=== PATIENT | male | born 1990 | race Caucasian/White ===

== ENCOUNTER 2024-03-18 17:15 | Inpatient (IN) | payer OTHER, SELFPAY ==
[2024-03-18 12:05] VITALS: BP 149/99
[2024-03-18 12:52] LABS: Glucose - Point of Care 102 mg/dl (70-99)
[2024-03-18] MEDS: NSS 1000 IV (12:54)
[2024-03-18] MEDS: ZOFRAN 4 MG IV (12:54)
[2024-03-18] MEDS: PROTONIX IV 40 MG IV (12:54)
--- NOTE | 2024-03-18 13:08 | ED.GENMED ---
History of Present Illness
General
Chief Complaint: Abdominal Pain
Source: patient and records
Exam Limitations: none
Time Seen by Provider: 03/18/24 12:42
Nursing documentation reviewed up to this point in time: agreed with
Travel History
Have you had any contact with someone who has COVID-19?: No
Do you have any symptoms of coronavirus? Fever > 100 degrees, chills, cough, shortness of breath, sore throat, loss of taste or smell, muscle aches, or headache?: No
History of Present Illness
History of Present Illness:
33-year-old male with a past medical history of hyperlipidemia, CAD, chronic alcohol abuse who presents to the emergency room for evaluation of abdominal pain. Patient reports onset of symptoms this morning and have been constant since that time.
He reports epigastric pain which is nonradiating. Associate with nausea but no vomiting. He reports he has a history of chronic pancreatitis' and feels like it is flaring up.' He denies any alcohol use today or yesterday to me. He denies any
fevers or chills. He denies any diarrhea or constipation. Denies any other complaints.
Past History
Past History
ED Past Medical History: CAD and Psychiatric
ED Past Surgical History: None
Social History
Tobacco: Smoker
Alcohol: Occasional
Drug: Cocaine, Narcotics and Other
Personal: Single
Living: homeless
Employment: Not employed
Family History
Family History: Early CAD
Review of Systems
Review of Systems
All Other Systems: ROS reviewed and negative except as documented in HPI and ROS
Constitutional: Denies fever or chills
Respiratory: Denies trouble breathing
Cardiac: Denies chest pain
ABD/GI: Reports abdominal pain and nausea; Denies vomiting, diarrhea or constipated
: Denies flank pain
Musculoskeletal: Denies neck pain or back pain
Neurological: Denies dizzy or headache
Phy Exam
Physical Exam
Physical Exam:
General: Patient is sleeping and lethargic but arousable
Head: Normocephalic, atraumatic
Eyes: Conjunctiva normal, sclera anicteric, pupils equal round reactive to light bilaterally
Throat: Airway intact, handling secretions
Neck: Trachea midline, supple without meningismus
Lungs: Clear to auscultation bilaterally, no wheezing, rales, rhonchi
Heart: Regular rate and rhythm, no murmurs, gallops, or rubs
Abd: Soft, non distended, markedly tender in the epigastric region
Neuro: No gross motor or sensory deficits, somewhat lethargic
Extremities: Atraumatic, warm and well-perfused
Scores
Heart Failure Risk
Heart Failure Risk Score: Not Applicable
Heart Score for Chest Pain Patients
STEMI patient?: Not applicable
Withdrawal Assessment of Alcohol
Withdrawal Assessment Completed?: Not applicable
Course
Orders/Labs/Results
Orders:
Orders
03/18/24 12:43
CT Abd/pelvis W Iv Cont Urgent
Comment:
Reason For Exam: upper abd pain, N/V, h/o chronic pancreatitis
0.9% Sodium Chloride 1000 ml [Nss] 1,000 ml IV BOLUS
HYDROmorphone [Dilaudid] 1 mg IV NOW STA
Ondansetron Injectable [Zofran] 4 mg IV NOW STA
03/18/24 12:44
Electrocardiogram (*1) Urgent
Reason for Study: QTc Monitoring
EKG- Treatment ONCE
03/18/24 12:45
Pantoprazole [Protonix IV] 40 mg IV NOW STA
03/18/24 12:46
Bedside Glucose- Treatment ONCE
Alcohol Urgent
Complete Blood Count/With Diff Urgent
Comprehensive Metabolic Panel Urgent
LDH Urgent
Comment: ADD ON
Lipase Urgent
03/18/24 14:12
Add On- LAB Urgent
Tests Added?: LDH
03/18/24 14:17
HYDROmorphone [Dilaudid] 1 mg IV NOW PRN
HYDROmorphone [Dilaudid] 1 mg IV NOW STA
Abnormal Lab Results
03/18/24 03/18/24
12:46 12:51
RBC 3.77 L 10^6/uL
(4.70-6.10)
Hgb 11.5 L g/dL
(13.0-18.0)
Hct 34.6 L %
(39.0-52.0)
Absolute Neuts (auto) 8.3 H 10^3/uL
(1.4-6.5)
Absolute Lymphs (auto) 0.6 L 10^3/uL
(1.2-3.4)
Neutrophils % 87.8 H %
(42.2-75.2)
Lymphocytes % 5.8 L %
(20.5-51.1)
Creatinine 0.6 L mg/dL
(0.7-1.3)
Glucose 109 H mg/dl
(70-99)
AST 66 H U/L
(17-59)
Alkaline Phosphatase 137 H U/L
(38-126)
Lactate Dehydrogenase 281 H U/L
(120-246)
Lipase 1882 H* U/L
(23-300)
POC Glucose 102 H mg/dl
(70-99)
03/18/24 12:46
03/18/24 12:46
Vital Signs
Initial and Last Documented VS:
Initial Vital Signs
Pulse Resp BP Pulse Ox
77 18 149/99 100
03/18/24 12:05 03/18/24 12:05 03/18/24 12:05 03/18/24 12:05
Last Documented Vital Signs
Pulse Resp BP Pulse Ox
62 16 134/90 100
03/18/24 14:11 03/18/24 14:11 03/18/24 14:11 03/18/24 14:11
MDM/Problems Addressed
Differential Diagnosis Includes:
Alcohol intoxication, alcoholic gastritis, acute pancreatitis, cholelithiasis/cholecystitis
MDM/Problems Addressed:
33-year-old male with history as above presents for evaluation of upper abdominal pain that started this morning he says associated with nausea. He says similar to prior episodes of pancreatitis. His vital signs are significant for mild
hypertension but otherwise unremarkable. Physical exam as above. His Accu-Chek was normal. Plan to place an IV check labs including a CBC and a CMP, lipase. Will check an alcohol level. Check CT of the abdomen pelvis. EKG for QTc monitoring.
Zofran for nausea. Will treat with IV Protonix as well. Will provide some fluids. Monitor closely reassess after the above.
Labs reviewed: CBC shows mild anemia; CMP shows slight elevation of AST. Lipase elevated at 1882 consistent with acute on chronic pancreatitis. Patient having continued pain we will provide additional Dilaudid. Will admit for continued management
of acute pancreatitis. Case discussed with hospitalist for admission.
Chronic conditions affecting care:
Alcohol abuse
Acute Exacerbation and/or Progression of Chronic Illness:
Acutely hypertensive
Acute Exacerbation and/or Progression of Chronic Illness: HTN
*Pulse Oximetry
Patient hypoxic: no
*EKG
Interpreted by ED Provider?: Yes
Heart Rate: 50
Rate: bradycardiac
Rhythm: sinus
[place]: normal axis
Interval: normal interval
QRS Pattern: normal QRS
Ischemia: no ischemia
*Critical Care Note
Total Time (30-74mins, 75-104mins- exclusive of procedures): Not Applicable
Data Reviewed
Review of Other/Old Records Reveals: Labs and Records
Source: patient
ED Attending Note
-
Portions of this chart may have been created with voice recognition software.� Occasional wrong word or��sound alike� substitutions may have occurred due to the inherent limitations of voice recognition software.
Discharge Plan
Departure
Patient Disposition: Admit
Date of Disposition: 03/18/24
Time of Disposition: 16:07
Admit to doctor: Susy
Presentation/result/management discussed w/ accepting MD/DO: Hospitalist
Discharge Problem:
Acute pancreatitis
Prescriptions:
No Action
atorvastatin [Lipitor] 20 MG tablet
40 mg PO HS
aspirin 81 MG tablet,delayed release (DR/EC)
81 mg PO DAILY
albuterol sulfate [Ventolin HFA] 90 MCG/PUFF HFA aerosol inhaler
2 puff inhalation R Q6HPRN PRN (Reason: sob)
prasugrel [Effient] 10 MG tablet
10 mg PO DAILY
dextroamphetamine-amphetamine [Adderall] 10 mg Tablet
10 mg PO NOON
dextroamphetamine-amphetamine [Adderall] 20 mg Tablet
20 mg PO DAILY
diazepam 10 mg Tablet
10 mg PO BID
buprenorphine-naloxone 8-2 mg film
1 film buccal DAILY
Patient Comments:
patient orange picker on 02/19 #15
Referrals:
Dannie Welch MD [Family Provider] -
Interventions
Interventions:
*Risk Screen - Suicide Last Done: 03/18/24 13:05
*General Assessment Last Done: 03/18/24 12:05
*Neglect/Abuse Screening Last Done: 03/18/24 13:05
*ED COVID-19 Vaccine History Last Done: 03/18/24 12:05
MU-Qhcznu-Ooylsrfcji Assessment Last Done: 03/18/24 13:05
Discharge Date and Time
Print Language: TURKISH
[2024-03-18 13:09] LABS: % Basophils 0.2 % (0-2); % Eosinophils 0.8 % (0-6); % Immature Granulocytes 0.3 % (0-0.5); % Lymphocytes 5.8 % (20.5-51.1); % Monocytes 5.1 % (1.7-9.3); % Neutrophils 87.8 % (42.2-75.2); Absolute Eosinophils 0.1 10^3/uL (0-0.7); Absolute Lymphocytes 0.6 10^3/uL (1.2-3.4); Absolute Monocytes 0.5 10^3/uL (0.1-0.6); Absolute Neutrophils 8.3 10^3/uL (1.4-6.5); Hematocrit 34.6 % (39.0-52.0); Hemoglobin 11.5 g/dL (13.0-18.0); Mean Corp Hgb Conc. 33.2 g/dL (33.0-37.0); Mean Corpuscular Hgb 30.5 pg (27.0-31.0); Mean Corpuscular Volume 91.8 fL (80.0-94.0); Mean Platelet Volume 8.4 fL (7.4-10.4); Nucleated Red Blood Cells % 0 % (-); Platelet Count 175 10^3/uL (130-400); Red Blood Cell Count 3.77 10^6/uL (4.70-6.10); Red Cell Dist. Width 14.4 % (11.5-14.5); White Blood Cell Count 9.5 10^3/uL (4.8-10.8)
[2024-03-18 13:50] LABS: ALT (SGPT) 29 U/L (0-50); AST (SGOT) 66 U/L (17-59); Albumin 4.2 g/dl (3.5-5.0); Alkaline Phosphatase 137 U/L (38-126); Blood Urea Nitrogen 17 mg/dl (9-20); Calcium 8.8 mg/dl (8.4-10.2); Carbon Dioxide 24 mmol/L (22-30); Chloride 103 mmol/L (98-107); Glucose 109 mg/dl (70-99); Lipase 1882 U/L (23-300); Potassium 3.7 mmol/L (3.5-5.1); Sodium 137 mmol/L (135-145); Total Bilirubin 1.2 mg/dl (0.2-1.3); Total Protein 7.2 g/dl (6.3-8.2); eGFR > 60.00
[2024-03-18 14:06] LABS: Alcohol None Detected
[2024-03-18 14:11] VITALS: BP 134/90
[2024-03-18] MEDS: DILAUDID 1 MG IV ×3 (14:26→17:32)
[2024-03-18 14:31] LABS: LDH 281 U/L (120-246)
--- NOTE | 2024-03-18 16:03 | EDRN ---
Pt states he couldn't tolerate CT because he's in too much pain to lay on the table. Pt states he was getting Dilaudid 4mg every few minutes via [employer] APPRAISER pump when he was admitted at [facility]. Pt laying in bed, talking on the phone, no apparent
distress noted, breathing unlabored. Pt requesting, more pain meds before re-attempting the CT scan. aware.
[2024-03-18 16:32] VITALS: BP 131/87
--- NOTE | 2024-03-18 16:35 | HPS.HSE ---
Family Physician
-
Family Physician: Dannie Welch
Chief Complaint
-
abdominal pain
History of Present Illness
33-year-old male past medical history of CAD, hyperlipidemia, chronic pancreatitis, alcohol use disorder, former opiate use, presenting for abdominal pain since this morning and constant since then. Pain is located epigastric region and goes all
the way up to his neck and back. He has shortness of breath associate with the pain. He has nausea but no vomiting. Denies diarrhea or constipation. Denies fevers or chills.
He last drank a cup of 5% alcoholic tea yesterday night. He drinks alcohol every other day sometimes excessively multiple drinks per day.
He was last hospitalized at [facility] August for acute pancreatitis. He was seen by pain management there during that hospitalization and required HOME HEALTH CLINICIAN pump.
He has not used nonprescribed opiates in years. Uses marijuana sometimes. Denies any other drugs
Medical History
Past Medical History
Past Medical History: Reports Other (CAD, hyperlipidemia, chronic pancreatitis, alcohol use disorder, former opiate use,)
Past Surgical History: Reports Orthopedic
Social History
Tobacco: Non-smoker
Alcohol: Daily
Drug: Marijuana
Family History
Family History: Not pertinent
Allergies / Home Medications
Allergies reflects when Allergies were last updated in [employer].
Home Medications with original date entered in [employer]
Allergy/Medication List:
Allergies
Allergy/AdvReac Type Severity Reaction Status Date / Time
No Known Allergies Allergy Verified 03/18/24 12:07
Home Medications
albuterol sulfate 90 mcg/actuation aerosol inhaler (Ventolin HFA) 2 puff inhalation R Q6HPRN PRN sob 01/10/19
aspirin 81 mg tablet,delayed release 81 mg PO DAILY 01/10/19
atorvastatin 20 mg tablet (Lipitor) 40 mg PO HS 01/10/19
prasugrel 10 mg tablet (Effient) 10 mg PO DAILY 01/10/19
buprenorphine 8 mg-naloxone 2 mg sublingual film 1 film buccal DAILY 03/18/24
dextroamphetamine-amphetamine 10 mg tablet (Adderall) 10 mg PO NOON 03/18/24
dextroamphetamine-amphetamine 20 mg tablet (Adderall) 20 mg PO DAILY 03/18/24
diazepam 10 mg tablet 10 mg PO BID 03/18/24
Review of Systems
-
History Source: Patient
A 12 point ROS was completed and negative except as noted: Yes
Constitutional: Reports No Symptoms
EENT: Reports No Symptoms
Respiratory: Reports No Symptoms
Cardiac: Reports No Symptoms
Abdomen/GI: Reports See HPI
: Reports No Symptoms
Musculoskeletal: Reports No Symptoms
Skin: Reports No Symptoms
Neurological: Reports No Symptoms
Endocrine: Reports No Symptoms
Hematologic/Lymphatic: Reports No Symptoms
Psych: Reports No Symptoms
Physical Exam
Vital Signs
Vital Signs
Pulse Resp BP Pulse Ox
65 16 131/87 99
03/18/24 16:32 03/18/24 16:32 03/18/24 16:32 03/18/24 16:32
Physical Exam
General: Well Developed, Well Nourished and No Apparent Distress
HEENT: NormoCephalic, Moist mucous membranes and Atraumatic
Respiratory: Clear
Cardiac: S1/S2 and Regular Rhythm; No Murmur or Rub
GI: Soft, Non Distended, Normal Bowel Sounds and Tender (epigastric ); No Organomegaly
Rectal: Deferred by Provider
Musculoskeletal: No Clubbing, No Cyanosis and No Edema
Skin: No Rash
Neuro: Nonfocal/grossly intact
Laboratory Results
-
03/18/24 12:46
03/18/24 12:46
Laboratory Results
Total Bilirubin 1.2 mg/dl (0.2-1.3) 03/18/24 12:46
AST 66 U/L (17-59) H 03/18/24 12:46
ALT 29 U/L (0-50) 03/18/24 12:46
Alkaline Phosphatase 137 U/L (38-126) H 03/18/24 12:46
Lipase 1882 U/L (23-300) H* 03/18/24 12:46
Data Reviewed
-
Lab Data: Labs Reviewed by me
Old Records: Reviewed
Impression/Plan
-
IMPRESSION:
PLAN:
# Acute on chronic alcoholic pancreatitis
-Lipase 1800
-CT abdomen pelvis pending
-Check lipid panel
-N.p.o.
-LR at 200/hr
-Dilaudid for pain although pain control will be difficult, 2 mg IV q4 for now, may require HOME HEALTH CLINICIAN
-hold Suboxone which is being given for pain and prior history of opiate use
Alcohol use disorder
-Continue diazepam
-Alcohol withdrawal protocol
-Thiamine and folate
Coronary artery disease status post stent
-Continue aspirin, prasugrel, statin
Hyperlipidemia
-Continue statin
ADHD
-Continue Adderall
Anxiety/depression
History of former opiate use disorder
Marijuana user
Full code
DVT prophylaxis�heparin
N.p.o.
[2024-03-18 18:28] VITALS: BP 136/80
[2024-03-18] MEDS: LR 1000 IV (18:40)
[2024-03-18 19:32] LABS: HDL Cholesterol 82 mg/dl; LDL Cholesterol, Calculated 27 mg/dl; Total Cholesterol 126 mg/dl (50-199); Triglyceride 89 mg/dl (10-149); Very Low Density Lipoprotein 17 mg/dl (0-30)
[2024-03-18] MEDS: HEPARIN 5000 UNITS SC (20:17)
[2024-03-18] MEDS: THIAMINE INJECTION 200 MG IV (20:17)
[2024-03-18] MEDS: LIPITOR 40 MG PO (20:18)
[2024-03-18] MEDS: VALIUM 10 MG PO (20:18)
[2024-03-18] MEDS: DILAUDID 2 MG IV (20:21)
[2024-03-18 23:03] VITALS: BP 157/86
[2024-03-19] MEDS: DILAUDID 2 MG IV ×3 (00:21→11:00)
[2024-03-19] MEDS: LR 1000 IV ×5 (00:26→19:40)
[2024-03-19] MEDS: DILAUDID 1 MG IV (03:56)
--- NOTE | 2024-03-19 05:41 | PTCARENOTE ---
Pt repots that Q$ hour PRN pain meds will not be enough, wants a web production manager pump like he had at [place]. Pt then requested pain meds be scheduled Q3 hours. Pt threatened to leave ama and contact 'corporate'. [facility] aware. Pt instructed to call when in pain
and we can ask about stat dose between PRN for breakthrough when appropriate. Also advised pt to speak with attending about changes with PRN regimen in the am.
[2024-03-19 07:30] VITALS: BP 132/80
[2024-03-19 07:58] LABS: % Basophils 0.3 % (0-2); % Eosinophils 2.6 % (0-6); % Immature Granulocytes 0.3 % (0-0.5); % Lymphocytes 12.2 % (20.5-51.1); % Monocytes 5.4 % (1.7-9.3); % Neutrophils 79.2 % (42.2-75.2); Absolute Eosinophils 0.2 10^3/uL (0-0.7); Absolute Monocytes 0.4 10^3/uL (0.1-0.6); Absolute Neutrophils 6.3 10^3/uL (1.4-6.5); Hematocrit 30.9 % (39.0-52.0); Hemoglobin 10.8 g/dL (13.0-18.0); Mean Corpuscular Hgb 30.9 pg (27.0-31.0); Mean Corpuscular Volume 88.5 fL (80.0-94.0); Nucleated Red Blood Cells % 0 % (-); Platelet Count 163 10^3/uL (130-400); Red Blood Cell Count 3.49 10^6/uL (4.70-6.10); Red Cell Dist. Width 14.4 % (11.5-14.5)
--- NOTE | 2024-03-19 08:37 | W.PN.HOSP.TC ---
Today's Communication/Plan
-
Change IV medications to Dilaudid DOOR TRIMMER
Clear liquid diet, trend lipase
Assessment / Plan
Assessment / Plan
HPI: 33-year-old male past medical history of CAD, hyperlipidemia, chronic pancreatitis, alcohol use disorder, former opiate use, presenting for abdominal pain since this morning and constant since then. Pain is located epigastric region and goes
all the way up to his neck and back. He has shortness of breath associate with the pain. He has nausea but no vomiting. Denies diarrhea or constipation. Denies fevers or chills. He last drank a cup of 5% alcoholic tea yesterday night. He drinks
alcohol every other day sometimes excessively multiple drinks per day.
He was last hospitalized at [facility] August for acute pancreatitis. He was seen by pain management there during that hospitalization and required DOOR TRIMMER pump.
# Acute on chronic alcoholic pancreatitis
CT findings compatible with acute pancreatitis with some pancreatic/peripancreatic edematous changes and some moderate volume widespread peripancreatic fluid extending into the left anterior pararenal spaces and paracolic gutters bilaterally.
Hold Suboxone which is being given for pain and prior history of opiate use
Continue IV fluids, Dilaudid DOOR TRIMMER pump, trial of clears when ready
Alcohol use disorder
-Continue diazepam
-Alcohol withdrawal protocol
-Thiamine and folate
Coronary artery disease status post stent
-Continue aspirin, prasugrel, statin
Hyperlipidemia
-Continue statin
ADHD
-Continue Adderall
Anxiety/depression
History of former opiate use disorder
-On buprenorphine outpatient (held here)
Marijuana user
DVT prophylaxis�SCDs
Total time spent to see the patient on the floor, examine the patient, review data and lab results, discuss treatment plan with patient, nursing staff around 51 minutes.
Physical Exam
General: No acute distress
HEENT: Normocephalic, Atraumatic, EOMI, MMM
Respiratory: Clear to Auscultation bilaterally
Cardiac: Normal S1/S2, Regular Rate and Rhythm
GI: Soft, tender to palpation, Nondistended, Normal Bowel Sounds
Extremities: No Clubbing, Cyanosis, or Edema
Neuro: Nonfocal/Grossly Intact
Psych: Calm, Cooperative
Derm: No Visible lesions
Anticipated Discharge: > 48 hours
Subjective/Interval History
-
Date of Service: March 19, 2024
Patient complains of severe abdominal pain. No fever, no vomiting. He is asking for DOOR TRIMMER. States he required 1 at [place].
Objective Data
-
Labs:
Laboratory Results
03/19/24
07:32
WBC 8.0
Hgb 10.8 L
Hct 30.9 L
Plt Count 163
Sodium Pending
Potassium Pending
Chloride Pending
Carbon Dioxide Pending
BUN Pending
Creatinine Pending
Glucose Pending
Calcium Pending
Total Bilirubin Pending
AST Pending
ALT Pending
Alkaline Phosphatase Pending
Vital Signs:
Vital Signs
Temp Pulse Resp BP Pulse Ox
98.2 F 55 16 132/80 98
03/19/24 07:30 03/19/24 07:30 03/19/24 07:30 03/19/24 07:30 03/19/24 07:30
I&O
03/18/24 03/19/24 03/20/24
06:59 06:59 06:59
Intake Total 2400 / 2400
Balance 2400 / 2400
[2024-03-19] MEDS: FOLVITE 1 MG PO (08:56)
[2024-03-19] MEDS: ADDERALL PO ×2 (08:56→14:50)
[2024-03-19] MEDS: ASPIR LOW (ENTERIC COATED) 81 MG PO (08:57)
[2024-03-19] MEDS: THIAMINE INJECTION 200 MG IV ×2 (08:57→19:42)
[2024-03-19] MEDS: VALIUM 10 MG PO ×2 (08:57→19:42)
[2024-03-19] MEDS: HEPARIN 5000 UNITS SC (08:57)
[2024-03-19 09:55] LABS: ALT (SGPT) 21 U/L (0-50); AST (SGOT) 46 U/L (17-59); Albumin 3.1 g/dl (3.5-5.0); Alkaline Phosphatase 126 U/L (38-126); Blood Urea Nitrogen 12 mg/dl (9-20); Carbon Dioxide 23 mmol/L (22-30); Chloride 104 mmol/L (98-107); Estimated Creatinine Clearance > 125 ml/min; Glucose 81 mg/dl (70-99); Potassium 3.5 mmol/L (3.5-5.1); Sodium 134 mmol/L (135-145); Total Bilirubin 0.9 mg/dl (0.2-1.3); Total Protein 5.7 g/dl (6.3-8.2); eGFR > 60.00
[2024-03-19] MEDS: EFFIENT 10 MG PO (10:59)
[2024-03-19] MEDS: TORADOL 30 MG IV ×3 (10:59→22:00)
[2024-03-19] MEDS: DILAUDID PCA 30 IV (14:05)
[2024-03-19 15:20] LABS: Lipase 1335 U/L (23-300)
[2024-03-19 15:46] VITALS: BP 126/75
--- NOTE | 2024-03-19 18:14 | PTCARENOTE ---
Pt not getting pain relief from 2mg dilaudid q4prn. Dilaudid HAM PUMPER started w/ q6 30mg IV toradol. Pt states pain is not completely relieved w/ this but tolerable. Pt started on clear diet and tolerating well for lunch and dinner.
[2024-03-19] MEDS: LIPITOR 40 MG PO (19:42)
[2024-03-19 23:30] VITALS: BP 119/68
[2024-03-20] MEDS: LR 1000 IV ×5 (00:22→21:03)
--- NOTE | 2024-03-20 04:05 | PTCARENOTE ---
Assumed care of patient from previous RN. Patient appears to be comfortable during walking rounds. Settings checked on HOT STRIP FINISHER pump with dayshift RN, timer present on patients lap on his cell phone to time when next bolus dose can be delievered.
Patient has called for this RN multiple times throughout shift to state he is unable to get his next bolus dose delivered as his timer is stating it is time that he can recieve next dose. Multiple calls to this RN made while this RN was in with
other patients, patient again appears to be comfortable with timer on lap.
This RN set own timer to observe bolus dose availability, at this time patient was able to receive bolus dose and he restarted his timer to be prepared for next dose to be given. Patient again appeared to be comfortable during this whole time.
Another RN present at bedside to assess patient and pump -- verified with this second RN that pump settings are correct, and that pump is working appropriately. Second HOT STRIP FINISHER pump obtained and changed out in the presence of second RN to appease
patient's anxieties about HOT STRIP FINISHER pump not working appropriately. Patient stating at this time 'I feel like this is malpractice. I have already spoken with my doctor through [place] to question if this is malpractice since I am sitting in pain and not
getting any bolus doses.' Patient is also stating he feels that we are lying about the HOT STRIP FINISHER pumps not working since he is unable to deliver bolus doses based on his timing. During further investigation of pump and settings -- it was noted by this RN
and second RN that patient has been receiving his total hourly limit, which includes his continuous rate and bolus amounts. Patient unable to deliver additional HOT STRIP FINISHER dose during these times, based on his timer countdown, for reaching his max hourly
limit. Patient does admit that he is feeling very anxious surrounding the timing of his bolus doses and that he is experiencing worse pain now than earlier in this shift because he does not feel he is getting the correct amount of medication.
Notified LEANDRO Pickett and requested dose of Ativan to assist patient is calming down and attempting to get some sleep. Awaiting further instruction, call womack within reach, will monitor.
--- NOTE | 2024-03-20 04:37 | W.PN.UPDATE ---
Update Note
Progress Note Update
RN stated patient anxious and obsessed with his medication pump and noted patient staying up for his next bolus of Dilaudid. patient appears comfortable and does not meet the criteria of MSAS. Requesting Ativan to help calm his anxiety. Will give
Ativan 0.5mg IV x 1. hx of ADHD, haven't been taking Adderall. May need psych Consult.
[2024-03-20] MEDS: TORADOL 30 MG IV ×4 (04:54→22:02)
[2024-03-20] MEDS: NSS (PRESERVATIVE FREE) 0.25 ML IV (04:55)
[2024-03-20] MEDS: ATIVAN 0.5 MG IV (04:55)
[2024-03-20 06:13] LABS: Hematocrit 26.4 % (39.0-52.0); Hemoglobin 9.1 g/dL (13.0-18.0); Mean Corp Hgb Conc. 34.5 g/dL (33.0-37.0); Mean Corpuscular Hgb 30.7 pg (27.0-31.0); Mean Corpuscular Volume 89.2 fL (80.0-94.0); Mean Platelet Volume 9.1 fL (7.4-10.4); Platelet Count 140 10^3/uL (130-400); Red Blood Cell Count 2.96 10^6/uL (4.70-6.10); Red Cell Dist. Width 13.7 % (11.5-14.5); White Blood Cell Count 4.8 10^3/uL (4.8-10.8)
[2024-03-20 06:31] LABS: Blood Urea Nitrogen 8 mg/dl (9-20); Calcium 7.7 mg/dl (8.4-10.2); Carbon Dioxide 26 mmol/L (22-30); Chloride 104 mmol/L (98-107); Estimated Creatinine Clearance > 125 ml/min; Glucose 87 mg/dl (70-99); Lipase 687 U/L (23-300); Magnesium 1.5 mg/dl (1.6-2.3); Phosphorus 3.6 mg/dl (2.5-4.5); Potassium 3.5 mmol/L (3.5-5.1); Sodium 135 mmol/L (135-145); eGFR > 60.00
[2024-03-20 07:30] VITALS: BP 117/81
--- NOTE | 2024-03-20 07:37 | W.PN.HOSP.TC ---
Addendum entered and electronically signed by Suleiman Roldan MD 03/20/24 13:44:
Discussed with patient's pain management doctor Dr. Mell Webb 03/20, informing her that his max dose of IV Dilaudid is 1.1 mg/h, giving him 3.3 mg over 3 hours.
Also informed her that his Dilaudid SENIOR MEDIA DIRECTOR pump was changed last night, and nursing states that it is working fine. Dr. Webb states that this is a good dose for him.
She also states that our hospitalist can get in touch with her at [phone] when it is time to transition him back to Suboxone.
Addendum entered and electronically signed by Suleiman Roldan MD 03/20/24 12:04:
#Hypomagnesemia
Give magnesium sulfate 2 g IV x 1, recheck a.m. mag
#Hypocalcemia
Start calcium and vitamin D
Recheck a.m. Ca
Original Note:
Today's Communication/Plan
-
See bold
Assessment / Plan
Assessment / Plan
HPI: 33-year-old male past medical history of CAD, hyperlipidemia, chronic pancreatitis, alcohol use disorder, former opiate use, presenting for abdominal pain since this morning and constant since then. Pain is located epigastric region and goes
all the way up to his neck and back. He has shortness of breath associate with the pain. He has nausea but no vomiting. Denies diarrhea or constipation. Denies fevers or chills. He last drank a cup of 5% alcoholic tea yesterday night. He drinks
alcohol every other day sometimes excessively multiple drinks per day.
He was last hospitalized at [facility] August for acute pancreatitis. He was seen by pain management there during that hospitalization and required SENIOR MEDIA DIRECTOR pump.
# Acute on chronic alcoholic pancreatitis
CT findings compatible with acute pancreatitis with some pancreatic/peripancreatic edematous changes and some moderate volume widespread peripancreatic fluid extending into the left anterior pararenal spaces and paracolic gutters bilaterally.
Patient counseled to permanently abstain from drinking alcohol
Hold Suboxone which is being given for pain and prior history of opiate use
Continue IV fluids, Dilaudid SENIOR MEDIA DIRECTOR pump, clear liquid diet, trend lipase
Called patient's pain management doctor, Dr. Mell Webb 03/20 and left message
Alcohol use disorder
-Continue diazepam
-Alcohol withdrawal protocol
-Thiamine and folate
Coronary artery disease status post stent
-Continue aspirin, prasugrel, statin
Hyperlipidemia
-Continue statin
ADHD
-Continue Adderall
Anxiety/depression
History of former opiate use disorder
-On buprenorphine outpatient (held here)
Marijuana user
DVT prophylaxis�SCDs
Total time spent to see the patient on the floor, examine the patient, review data and lab results, discuss treatment plan with patient, nursing staff around 52 minutes.
Physical Exam
General: No acute distress
HEENT: Normocephalic, Atraumatic, EOMI, MMM
Respiratory: Clear to Auscultation bilaterally
Cardiac: Normal S1/S2, Regular Rate and Rhythm
GI: Soft, tender to palpation, Nondistended, Normal Bowel Sounds
Extremities: No Clubbing, Cyanosis, or Edema
Neuro: Nonfocal/Grossly Intact
Psych: Calm, Cooperative
Derm: No Visible lesions
Anticipated Discharge: 24 - 48 hours
Subjective/Interval History
-
Date of Service: March 20, 2024
Patient's pain was controlled with the Dilaudid SENIOR MEDIA DIRECTOR pump during the day yesterday. He had his clear liquid tray, reports eating a lot, and had a terrible night with worsening abdominal pain. He thought his pump was not working. The pump was
changed last night. His pain is better this morning. He tolerated his diet without pain this morning. No fever, no vomiting.
Objective Data
-
Labs:
Laboratory Results
03/20/24
05:32
WBC 4.8
Hgb 9.1 L
Hct 26.4 L
Plt Count 140
Sodium 135
Potassium 3.5
Chloride 104
Carbon Dioxide 26
BUN 8 L
Creatinine 0.5 L
Glucose 87
Calcium 7.7 L
Vital Signs:
Vital Signs
Temp Pulse Resp BP Pulse Ox
98.2 F 58 18 119/68 98
03/19/24 23:30 03/19/24 23:30 03/20/24 04:00 03/19/24 23:30 03/20/24 04:00
I&O
03/19/24 03/20/24 03/21/24
06:59 06:59 06:59
Intake Total 2400 / 2400 3540 / 3540
Balance 2400 / 2400 3540 / 3540
[2024-03-20] MEDS: MAGNESIUM SULFATE 50 IV (08:26)
[2024-03-20] MEDS: FOLVITE 1 MG PO (08:27)
[2024-03-20] MEDS: VALIUM 10 MG PO ×2 (08:27→20:35)
[2024-03-20] MEDS: THIAMINE INJECTION 200 MG IV ×2 (08:27→20:35)
[2024-03-20] MEDS: OSCAL 500 + D 500 MG PO ×3 (08:27→22:03)
[2024-03-20] MEDS: ASPIR LOW (ENTERIC COATED) 81 MG PO (08:27)
[2024-03-20] MEDS: ADDERALL PO (08:29)
[2024-03-20] MEDS: EFFIENT 10 MG PO (09:02)
[2024-03-20] MEDS: ADDERALL 10 MG PO (11:44)
[2024-03-20 15:07] VITALS: BP 130/80
--- NOTE | 2024-03-20 15:26 | CM ---
Met with patient at bedside; initial assessment completed
Pharmacy verified: [facility], [place]
Patient lives alone in a one floor rental home; 1 step to enter; bath has tub/shower
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
[facility] Alcohol Rehab stay in 2019
Transportation: friend will transport home
Plan: discharge to home when medically stable; no needs
[2024-03-20] MEDS: DILAUDID PCA 30 IV (20:10)
[2024-03-20] MEDS: LIPITOR 40 MG PO (22:03)
[2024-03-20 22:28] VITALS: BP 143/90
[2024-03-21] MEDS: LR 1000 IV ×5 (02:07→23:15)
[2024-03-21] MEDS: TORADOL 30 MG IV ×4 (03:50→23:08)
[2024-03-21 07:00] VITALS: BP 127/89
[2024-03-21 07:59] LABS: Hemoglobin 10.6 g/dL (13.0-18.0); Mean Corp Hgb Conc. 35.3 g/dL (33.0-37.0); Mean Corpuscular Hgb 31.2 pg (27.0-31.0); Mean Corpuscular Volume 88.2 fL (80.0-94.0); Mean Platelet Volume 8.8 fL (7.4-10.4); Platelet Count 185 10^3/uL (130-400); Red Cell Dist. Width 14.3 % (11.5-14.5); White Blood Cell Count 4.9 10^3/uL (4.8-10.8)
[2024-03-21 08:06] LABS: Potassium 3.5 mmol/L (3.5-5.1)
[2024-03-21 08:07] LABS: Blood Urea Nitrogen 4 mg/dl (9-20); Calcium 8.3 mg/dl (8.4-10.2); Carbon Dioxide 29 mmol/L (22-30); Chloride 104 mmol/L (98-107); Estimated Creatinine Clearance > 125 ml/min; Glucose 87 mg/dl (70-99); Lipase 510 U/L (23-300); Magnesium 1.6 mg/dl (1.6-2.3); Phosphorus 4.7 mg/dl (2.5-4.5); Sodium 139 mmol/L (135-145); eGFR > 60.00
[2024-03-21] MEDS: ASPIR LOW (ENTERIC COATED) 81 MG PO (08:44)
[2024-03-21] MEDS: EFFIENT 10 MG PO (08:45)
[2024-03-21] MEDS: FOLVITE 1 MG PO (08:45)
[2024-03-21] MEDS: OSCAL 500 + D 500 MG PO ×3 (08:46→23:07)
[2024-03-21] MEDS: ADDERALL 20 MG PO (08:46)
[2024-03-21] MEDS: THIAMINE INJECTION 200 MG IV (08:46)
[2024-03-21] MEDS: VALIUM 10 MG PO ×2 (08:46→19:40)
--- NOTE | 2024-03-21 09:06 | PTCARENOTE ---
Patient was sound asleep during nurse shift change at 0730. RN let patient keep sleeping. At 0900, RN went in to assess patient and administer morning meds, patient begins to state that his pain is uncontrolled and getting worse than yesterday. RN
educated patient on Dilaudid SECURITIES LENDING TRADER plan and IV toradol Q6 hours. RN also reviewed previous provider notes about pain management issues with patient- as Dr. Roldan and previous RN's have also reviewed this pain regimen with him. RN reinforced this is
safest dose we can give at the moment. Pt is A&Ox4, calm, rates pain 5/10, breathing normally while sitting up right in bed. Patient then states the current pain he is feeling 'has been there for several years', and is not new.
--- NOTE | 2024-03-21 10:31 | W.PN.HOSP.TC ---
Today's Communication/Plan
-
Pt appears comfortable despite him stating that he is in pain
check UDS
cont current Dilaudid DOCUMENTATION WRITER
Assessment / Plan
Assessment / Plan
HPI: 33-year-old male past medical history of CAD, hyperlipidemia, chronic pancreatitis, alcohol use disorder, former opiate use, p/w abdominal pain located in epigastric region. He has shortness of breath associated with the pain.
He drinks alcohol every other day, sometimes excessively with multiple drinks per day.
He was last hospitalized at [facility] August for acute pancreatitis. He was seen by pain management there during that hospitalization and required DOCUMENTATION WRITER pump.
A/P:
# Acute on chronic alcoholic pancreatitis
CT findings compatible with acute pancreatitis with some pancreatic/peripancreatic edematous changes and some moderate volume widespread peripancreatic fluid extending into the left anterior pararenal spaces and paracolic gutters bilaterally.
Patient counseled to permanently abstain from drinking alcohol
Check UDS
Hold SHOE DRESSER Suboxone which is being given for pain and prior history of opiate use
Continue IV fluid with RL, Dilaudid DOCUMENTATION WRITER pump, clear liquid diet, trend lipase
Dr d/w patient's pain management doctor, Dr. Mell Webb 03/20 at [phone], informed her that his max dose of IV Dilaudid is 1.1 mg/h, giving him 3.3 mg over [address] Webb states that this is a good dose for him.
She also states that our hospitalist can get in touch with her at [phone] when it is time to transition him back to Suboxone.
# L flank pain
Check kidney US
# Alcohol use disorder
Continue diazepam
Alcohol withdrawal protocol
Thiamine and folate
# Coronary artery disease status post stent
Continue aspirin, prasugrel, statin
# Hyperlipidemia
Continue statin
# ADHD
Continue Adderall
# Anxiety/depression
# History of former opiate use disorder
On buprenorphine outpatient (held here)
# Marijuana user
DVT prophylaxis�SCDs
Anticipated Discharge: 24 - 48 hours
Subjective/Interval History
-
Date of Service: March 21, 2024
Objective Data
-
Labs:
Laboratory Results
03/21/24
07:39
WBC 4.9
Hgb 10.6 L
Hct 30.0 L
Plt Count 185 D
Sodium 139
Potassium 3.5
Chloride 104
Carbon Dioxide 29
BUN 4 L
Creatinine 0.5 L
Glucose 87
Calcium 8.3 L
Vital Signs:
Vital Signs
Temp Pulse Resp BP Pulse Ox
36.3 C 76 16 127/89 97
03/21/24 07:00 03/21/24 07:00 03/21/24 08:00 03/21/24 07:00 03/21/24 08:00
I&O
03/20/24 03/21/24 03/22/24
06:59 06:59 06:59
Intake Total 3540 / 3540 1320 / 1320
Balance 3540 / 3540 1320 / 1320
Review of Systems
-
Abdomen/GI: Reports Abdominal Pain
Genitourinary: Reports Flank Pain (L flank pain)
Physical Exam
-
General: Well Developed, Well Nourished, No Apparent Distress, Comfortable and Conversant; Negative Respiratory Distress
HEENT: Normocephalic, Atraumatic, Nose Appears Normal and Ears Appear Normal; Negative Oxygen
Respiratory: Clear to Auscultation and Non Labored Respirations; Negative Accessory Resp Muscle Use
Cardiac: Regular Rhythm and S1/S2
GI: Soft, Nontender, Nondistended and Normal Bowel Sounds
Skin: Warm and Dry
Neuro: Awake, Alert, Oriented, AO x 3 and Nonfocal/Grossly Intact
Psych: Calm and Intact Judgement/Insight
Data Reviewed
-
Labs: Labs Reviewed by me
[2024-03-21] MEDS: KCL 270 MEQ IV (11:22)
[2024-03-21 12:07] LABS: Amphetamines Positive (Negative); Barbiturates Negative (Negative); Benzodiazepines Positive (Negative)
[2024-03-21 12:08] LABS: Buprenorphine Negative (Negative); Cocaine Negative (Negative); Marijuana Negative (Negative); Methadone Negative (Negative); Methamphetamines Negative (Negative); Opiates Positive (Negative); Phencyclidine Negative (Negative); Tricyclic Antidepressants Negative (Negative)
[2024-03-21 12:21] LABS: Fentanyl, Urine Negative (Negative)
[2024-03-21] MEDS: ZOFRAN 4 MG IV (12:36)
[2024-03-21] MEDS: ADDERALL 10 MG PO (12:37)
[2024-03-21 14:54] VITALS: BP 156/96
[2024-03-21] MEDS: MAGNESIUM SULFATE 50 IV (16:34)
[2024-03-21] MEDS: VITAMIN B1 100 MG PO (19:40)
[2024-03-21] MEDS: LIPITOR 40 MG PO (23:07)
[2024-03-21 23:25] VITALS: BP 156/91
[2024-03-22] MEDS: LR 1000 IV ×2 (04:03→08:16)
[2024-03-22] MEDS: TORADOL 30 MG IV ×4 (05:00→21:14)
[2024-03-22 06:55] LABS: Hematocrit 27.9 % (39.0-52.0); Hemoglobin 9.7 g/dL (13.0-18.0); Mean Corp Hgb Conc. 34.8 g/dL (33.0-37.0); Mean Corpuscular Hgb 30.8 pg (27.0-31.0); Mean Corpuscular Volume 88.6 fL (80.0-94.0); Mean Platelet Volume 8.8 fL (7.4-10.4); Platelet Count 190 10^3/uL (130-400); Red Blood Cell Count 3.15 10^6/uL (4.70-6.10); Red Cell Dist. Width 14.7 % (11.5-14.5); White Blood Cell Count 4.4 10^3/uL (4.8-10.8)
[2024-03-22 07:15] VITALS: BP 141/90
[2024-03-22 07:27] LABS: Blood Urea Nitrogen 3 mg/dl (9-20); Carbon Dioxide 31 mmol/L (22-30); Chloride 100 mmol/L (98-107); Estimated Creatinine Clearance > 125 ml/min; Glucose 87 mg/dl (70-99); Lipase 367 U/L (23-300); Magnesium 1.6 mg/dl (1.6-2.3); Phosphorus 4.9 mg/dl (2.5-4.5); Potassium 3.9 mmol/L (3.5-5.1); Sodium 136 mmol/L (135-145); eGFR > 60.00
[2024-03-22] MEDS: ASPIR LOW (ENTERIC COATED) 81 MG PO (08:18)
[2024-03-22] MEDS: ADDERALL 20 MG PO (08:18)
[2024-03-22] MEDS: OSCAL 500 + D 500 MG PO ×3 (08:18→21:15)
[2024-03-22] MEDS: FOLVITE 1 MG PO (08:18)
[2024-03-22] MEDS: VITAMIN B1 100 MG PO ×2 (08:19→21:15)
[2024-03-22] MEDS: EFFIENT 10 MG PO (08:34)
[2024-03-22] MEDS: VALIUM 10 MG PO ×2 (09:04→21:14)
--- NOTE | 2024-03-22 10:39 | W.PN.HOSP.TC ---
Addendum entered and electronically signed by Vivian Nickerson MD 03/22/24 12:53:
# Opioid use with dependence
Original Note:
Today's Communication/Plan
-
see A/P
Assessment / Plan
Assessment / Plan
HPI: 33-year-old male past medical history of CAD, hyperlipidemia, chronic pancreatitis, alcohol use disorder, former opiate use, p/w abdominal pain located in epigastric region. He has shortness of breath associated with the pain.
He drinks alcohol every other day, sometimes excessively with multiple drinks per day.
He was last hospitalized at [facility] August for acute pancreatitis. He was seen by pain management there during that hospitalization and required ROUTE SALES DRIVER pump.
A/P:
# Acute on chronic alcoholic pancreatitis
CT findings compatible with acute pancreatitis with some pancreatic/peripancreatic edematous changes and some moderate volume widespread peripancreatic fluid extending into the left anterior pararenal spaces and paracolic gutters bilaterally.
UDS noted
Hold POSTAGE MACHINE OPERATOR Suboxone which is being given for pain and prior history of opiate use
DC additional IVF RL
Cont Dilaudid ROUTE SALES DRIVER pump
advance diet to low fat
lipase level trending down
Dr Roldan d/w patient's pain management doctor, Dr. Mell Webb 03/20 at [phone], informed her that his max dose of IV Dilaudid is 1.1 mg/h, giving him 3.3 mg over [address] Webb states that this is a good dose for him.
She also states that our hospitalist can get in touch with her at [phone] when it is time to transition him back to Suboxone.
# L flank pain, resolved
Admission CT AP did not show any abnormality of the kidneys
follow up kidney US unrevealing
# Alcohol use disorder
Continue diazepam
Alcohol withdrawal protocol
Thiamine and folate
# Coronary artery disease status post stent
Continue aspirin, prasugrel, statin
# Hyperlipidemia
Continue statin
# ADHD
Continue Adderall
# Anxiety/depression
# History of former opiate use disorder
On buprenorphine outpatient (held here)
# Marijuana user
DVT prophylaxis�SCDs
Anticipated Discharge: Within 24 hours
Subjective/Interval History
-
Date of Service: March 22, 2024
Objective Data
-
Labs:
Laboratory Results
03/22/24
06:25
WBC 4.4 L
Hgb 9.7 L
Hct 27.9 L
Plt Count 190
Sodium 136
Potassium 3.9
Chloride 100
Carbon Dioxide 31 H
BUN 3 L
Creatinine 0.5 L
Glucose 87
Calcium 9.0
Vital Signs:
Vital Signs
Temp Pulse Resp BP Pulse Ox
36.6 C 47 16 141/90 94
03/22/24 07:15 03/22/24 07:15 03/22/24 07:15 03/22/24 07:15 03/22/24 07:15
I&O
03/21/24 03/22/24 03/23/24
06:59 06:59 06:59
Intake Total 1320 / 1320 5410 / 5410
Output Total 1250 / 1250
Balance 1320 / 1320 4160 / 4160
Review of Systems
-
Abdomen/GI: Reports Abdominal Pain
Physical Exam
-
General: Well Developed, Well Nourished, No Apparent Distress, Comfortable and Conversant; Negative Respiratory Distress
HEENT: Normocephalic, Atraumatic, Nose Appears Normal and Ears Appear Normal; Negative Oxygen
Respiratory: Clear to Auscultation and Non Labored Respirations; Negative Accessory Resp Muscle Use
Cardiac: Regular Rhythm and S1/S2
GI: Soft, Nontender, Nondistended and Normal Bowel Sounds
Skin: Warm and Dry
Neuro: Awake, Alert, Oriented, AO x 3 and Nonfocal/Grossly Intact
Psych: Calm and Intact Judgement/Insight
Data Reviewed
-
Ultrasound: Report Reviewed by me
Labs: Labs Reviewed by me
--- NOTE | 2024-03-22 10:43 | PN.CDI ---
CDI
- -
CDI:
Physician Documentation Request
Admit Date: 03/18/24 17:15
Dear Doctor Krishan,
Please review the following and provide your response in the progress notes.
Clinical Indicators:
- 03/21 PN 'History of former opiate use disorder'
- 'Hold BALE COVERER Suboxone which is being given for pain and prior history of opiate use'
- RN note 'threatened to leave ama and contact 'corporate''
- 'he does not feel he is getting the correct amount of medication'
- Threatening malpractice
- Hydromorphone given x 8
- Dilaudid PROMOTION PRODUCER set up
If possible, please provide further specificity as outlined below:
Opioid use with dependence
Opioid use without dependence
Other
Use of terms such as suspected, likely, concern for, or probable (associated with a specific diagnosis that is being evaluated, monitored, or treated as if it exists) are acceptable and can be coded in the inpatient setting, when documented at the
time of discharge.
Thank you,
Brittany Rey RN
CDI Specialist
Please use your independent medical judgment in providing your response.
[2024-03-22] MEDS: DILAUDID PCA 30 IV (11:38)
[2024-03-22] MEDS: ADDERALL 10 MG PO (12:20)
[2024-03-22] MEDS: LR IV (13:21)
[2024-03-22 16:00] VITALS: BP 149/91
[2024-03-22] MEDS: D5/0.45%NACL 1000 IV (16:36)
[2024-03-22] MEDS: MIRALAX 17 GRAMS PO (16:53)
[2024-03-22] MEDS: SENOKOT-S 1 TABLET PO (21:14)
[2024-03-22] MEDS: LIPITOR 40 MG PO (21:14)
[2024-03-22 23:00] VITALS: BP 168/94
[2024-03-23] MEDS: TORADOL 30 MG IV ×2 (03:02→10:04)
[2024-03-23 06:22] LABS: Hematocrit 29.3 % (39.0-52.0); Mean Corp Hgb Conc. 34.1 g/dL (33.0-37.0); Mean Corpuscular Hgb 30.9 pg (27.0-31.0); Mean Corpuscular Volume 90.4 fL (80.0-94.0); Mean Platelet Volume 8.9 fL (7.4-10.4); Platelet Count 213 10^3/uL (130-400); Red Blood Cell Count 3.24 10^6/uL (4.70-6.10); Red Cell Dist. Width 14.5 % (11.5-14.5); White Blood Cell Count 4.4 10^3/uL (4.8-10.8)
[2024-03-23 07:30] VITALS: BP 132/77
[2024-03-23 07:45] LABS: Blood Urea Nitrogen 4 mg/dl (9-20); Calcium 9.1 mg/dl (8.4-10.2); Carbon Dioxide 29 mmol/L (22-30); Chloride 102 mmol/L (98-107); Estimated Creatinine Clearance > 125 ml/min; Glucose 93 mg/dl (70-99); Lipase 161 U/L (23-300); Magnesium 1.6 mg/dl (1.6-2.3); Potassium 3.9 mmol/L (3.5-5.1); Sodium 138 mmol/L (135-145); eGFR > 60.00
[2024-03-23] MEDS: MIRALAX 17 GRAMS PO (08:04)
[2024-03-23] MEDS: NICODERM TRANSDERMAL 14 MG TRANSDERM (08:04)
[2024-03-23] MEDS: FOLVITE 1 MG PO (08:06)
[2024-03-23] MEDS: SENOKOT-S 1 TABLET PO (08:06)
[2024-03-23] MEDS: OSCAL 500 + D 500 MG PO (08:06)
[2024-03-23] MEDS: ASPIR LOW (ENTERIC COATED) 81 MG PO (08:06)
[2024-03-23] MEDS: VITAMIN B1 100 MG PO (08:06)
[2024-03-23] MEDS: ADDERALL 20 MG PO (08:07)
[2024-03-23] MEDS: EFFIENT 10 MG PO (08:19)
[2024-03-23] MEDS: VALIUM PO (08:19)
--- NOTE | 2024-03-23 09:43 | W.PN.HOSP.TC ---
Addendum entered and electronically signed by Vivian Nickerson MD 03/23/24 13:21:
total DC time 35 min
Original Note:
Today's Communication/Plan
-
DC home today
Assessment / Plan
Assessment / Plan
HPI: 33-year-old male past medical history of CAD, hyperlipidemia, chronic pancreatitis, alcohol use disorder, former opiate use, p/w abdominal pain located in epigastric region. He has shortness of breath associated with the pain.
He drinks alcohol every other day, sometimes excessively with multiple drinks per day.
He was last hospitalized at [facility] August for acute pancreatitis. He was seen by pain management there during that hospitalization and required SEASONAL WAREHOUSE ASSOCIATE pump.
A/P:
# Acute on chronic alcoholic pancreatitis
CT findings compatible with acute pancreatitis with some pancreatic/peripancreatic edematous changes and some moderate volume widespread peripancreatic fluid extending into the left anterior pararenal spaces and paracolic gutters bilaterally.
UDS noted
DC further Dilaudid SEASONAL WAREHOUSE ASSOCIATE pump, cont METER CHANGES RECORDS CLERK Suboxone
advanced diet to low fat
lipase now WNL at 161
# L flank pain, resolved
Admission CT AP did not show any abnormality of the kidneys
follow up kidney US unrevealing
# Alcohol use disorder
Continue diazepam
Alcohol withdrawal protocol
Thiamine and folate
# Coronary artery disease status post stent
Continue aspirin, prasugrel, statin
# Hyperlipidemia
Continue statin
# ADHD
Continue Adderall
# Anxiety/depression
# History of former opiate use disorder
On buprenorphine outpatient (held here)
# Marijuana user
DVT prophylaxis�SCDs
DW RN
Anticipated Discharge: Today
Subjective/Interval History
-
Date of Service: March 23, 2024
Objective Data
-
Labs:
Laboratory Results
03/23/24
06:11
WBC 4.4 L
Hgb 10.0 L
Hct 29.3 L
Plt Count 213
Sodium 138
Potassium 3.9
Chloride 102
Carbon Dioxide 29
BUN 4 L
Creatinine 0.5 L
Glucose 93
Calcium 9.1
Vital Signs:
Vital Signs
Temp Pulse Resp BP Pulse Ox
37.0 C 53 12 132/77 99
03/23/24 07:30 03/23/24 07:30 03/23/24 08:00 03/23/24 07:30 03/23/24 08:00
I&O
03/22/24 03/23/24 03/24/24
06:59 06:59 06:59
Intake Total 5410 / 5410 1600 / 1600
Output Total 1250 / 1250 650 / 650
Balance 4160 / 4160 950 / 950
Review of Systems
-
All other systems: Reviewed and negative
Physical Exam
-
General: Well Developed, Well Nourished, No Apparent Distress, Comfortable and Conversant; Negative Respiratory Distress
HEENT: Normocephalic, Atraumatic, Nose Appears Normal and Ears Appear Normal; Negative Oxygen
Respiratory: Clear to Auscultation and Non Labored Respirations; Negative Accessory Resp Muscle Use
Cardiac: Regular Rhythm and S1/S2
GI: Soft, Nontender, Nondistended and Normal Bowel Sounds
Skin: Warm and Dry
Neuro: Awake, Alert, Oriented, AO x 3 and Nonfocal/Grossly Intact
Psych: Calm and Intact Judgement/Insight
Data Reviewed
-
Ultrasound: Report Reviewed by me
Labs: Labs Reviewed by me
--- NOTE | 2024-03-23 10:32 | CM ---
Reviewed chart, patient remains functionally at baseline level. Still requiring acute care.
Plan: Case management will continue to follow and assist with discharge planning. Home when stable.
[2024-03-23 10:51] VITALS: BP 132/91
--- NOTE | 2024-03-23 13:12 | W.DCSUMMARY ---
Discharge Summary
Discharge Data
Date of Admission: 03/18/24
Date of Discharge: 03/23/24
-
Pending Results: No
Hospital Course
Principal Diagnosis:
Acute on chronic alcoholic pancreatitis
Chronic Diagnoses:�
Alcohol use disorder
Coronary artery disease status post stent, on aspirin, prasugrel, statin
Hyperlipidemia
Attention-deficit/hyperactivity disorder on Adderall
Anxiety/depression
History of opiate use disorder on buprenorphine outpatient
Marijuana user
Consultations:�
None
Procedures:�
None
Clinical course:�
This is a 33-year-old male with past medical history as stated above, who presented with epigastric abdominal pain. He admits to drinking alcohol every other day, sometimes excessively with multiple drinks per day.
He was last hospitalized at [facility] in 08/2023 for acute pancreatitis. He was seen by pain management there during that hospitalization and required BATCH STILL OPERATOR pump.
Problem 1:
Acute on chronic alcoholic pancreatitis.
His CT noted acute pancreatitis with some pancreatic/peripancreatic edematous changes and some moderate volume widespread peripancreatic fluid extending into the left anterior pararenal spaces and paracolic gutters bilaterally.
He was treated with Dilaudid BATCH STILL OPERATOR pump for pain control while in the hospital, this was discontinued before discharge and he can continue with his prior to admission Suboxone following discharge.
His lipase trended down to 161 on the day of discharge and he tolerated low-fat diet without any issue.
Problem 2:
Alcohol use disorder.
He was counseled regarding alcohol use cessation.
As for the rest of his medical problems, they were stable during his hospital stay.
Discharge Plan
-
Patient Disposition: Home (Routine Discharge)
Discharge Diagnosis/Procedures: Acute on chronic alcoholic pancreatitis; Alcohol use disorder
Condition: Good
Diet: As tolerated, Low Fat and Low Cholesterol
Additional Diets: AVOID DRINKING ALCOHOL
Activity: As tolerated
Driving Restrictions: As prior to admission
Referrals:
Dannie Welch MD [Family Provider] - in less than 1 week
Prescriptions:
Continued
atorvastatin [Lipitor] 20 MG tablet
40 mg PO HS
aspirin 81 MG tablet,delayed release (DR/EC)
81 mg PO DAILY
albuterol sulfate [Ventolin HFA] 90 MCG/PUFF HFA aerosol inhaler
2 puff inhalation R Q6HPRN PRN (Reason: sob)
prasugrel [Effient] 10 MG tablet
10 mg PO DAILY
dextroamphetamine-amphetamine [Adderall] 10 mg Tablet
10 mg PO NOON
dextroamphetamine-amphetamine [Adderall] 20 mg Tablet
20 mg PO DAILY
diazepam 10 mg Tablet
10 mg PO BID
buprenorphine-naloxone 8-2 mg film
1 film buccal DAILY
Patient Comments:
patient pick up operator on 02/19 #15
Discharge Orders:
Discharge Patient (As Directed); Ordered 03/23/24
Ordered By: Vivian Nickerson
Discharge Date and Time
Discharge Date/Time: 03/23/24 11:00
Print Language: SAO TOMEAN
== END 2024-03-23 11:00 | disposition home or self-care (01) | DRG 439 ==
LOC: 3 WEST ACU 17:15
PROVIDERS: Family Medicine; ADMITTING PHYSICIAN Hospitalist; ATTENDING PHYSICIAN Internal Medicine; EMERGENCY PHYSICIAN Emergency Medicine; FAMILY PHYSICIAN Internal Medicine
DX: K85.20 Alcohol induced acute pancreatitis without necrosis or infection (principal); F11.20 Opioid dependence, uncomplicated; Z59.00 Homelessness unspecified; I25.10 Atherosclerotic heart disease of native coronary artery without angina pectoris; K86.0 Alcohol-induced chronic pancreatitis; E78.5 Hyperlipidemia, unspecified; F10.10 Alcohol abuse, uncomplicated; F90.9 Attention-deficit hyperactivity disorder, unspecified type; E83.42 Hypomagnesemia; E83.51 Hypocalcemia; F32.A Depression, unspecified; F41.9 Anxiety disorder, unspecified; F17.200 Nicotine dependence, unspecified, uncomplicated; F12.90 Cannabis use, unspecified, uncomplicated; Z79.82 Long term (current) use of aspirin; Z79.899 Other long term (current) drug therapy; Z95.5 Presence of coronary angioplasty implant and graft
CPT/HCPCS: 74177; 76775; 80048; 80053; 80061; 80306; 80307; 82077; 82962; 83615; 83690; 83735; 84100; 85025; 85027; 93005; 96361; 96374; 96375; 96376; 99285; 99406; Q9967

== ENCOUNTER 2024-09-01 13:29 | Emergency (ER) | payer OTHER, SELFPAY ==
[2024-09-01 13:36] VITALS: BP 131/83
--- NOTE | 2024-09-01 14:20 | ED.GENMED ---
History of Present Illness
<Mary Rodriguez PA-C - Last Filed: 09/02/24 14:57>
General
Chief Complaint: Anxiety
Source: patient and family
Time Seen by Provider: 09/01/24 14:01
History of Present Illness
History of Present Illness:
34yoM with a history of coronary artery disease s/p PCI, hyperlipidemia, ADHD, and alcohol/substance abuse on Suboxone presenting with his sister for evaluation of auditory hallucinations that have been ongoing for at least a month. He reports
hearing different voices and being very paranoid. The voices are trying to gather information on him and are trying to go through his phone. He also heard an elderly woman a few days ago that was yelling about the assistant curator. He believes people are
following him. He is also having increasing anxiety. Patient had an episode of chest pain yesterday after attending family therapy which has resolved. His last drug use was about 1 week ago and last alcohol use was 3-4 days. He denies any withdrawal
symptoms currently. He denies any visual hallucinations or command hallucinations. No suicidal thoughts. He is currently prescribed diazepam and Adderall.
Past History
<Mary Rodriguez PA-C - Last Filed: 09/02/24 14:57>
Past History
ED Past Medical History: CAD and Psychiatric
ED Past Surgical History: None
Social History
Tobacco: Smoker
Alcohol: Occasional
Drug: Cocaine, Narcotics and Other
Personal: Single
Living: homeless
Employment: Not employed
Family History
Family History: Early CAD
Phy Exam
<Mary Rodriguez PA-C - Last Filed: 09/02/24 14:57>
General Physical Exam
General Presentation: no apparent distress
General age: appears stated age
General Skin: warm and dry
General Habitus: normal
General Mental: alert
ENT Exam
ENT Exam: normocephalic
Cardiovascular Exam
Cardiovascular Exam: no murmur and bradycardia
Pulmonary Exam
Pulmonary Exam: lungs clear, no respiratory distress, no crackles and no wheezing
Neurological Exam
Neurological Exam: alert
Kel Coma Scale
Eye Opening: Spontaneous
Verbal Response: Oriented
Motor Response: Obeys Commands
GCS Total Score: 15
Skin Exam
Skin Exam: normal color and warm/dry
Psychiatric Exam
Psychiatric Exam: hallucination and other (+Auditory hallucinations. No SI.)
<Gilberto Saini PA-C - Last Filed: 09/01/24 19:26>
Kel Coma Scale
GCS Total Score: 15
Course
<Mary Rodriguez PA-C - Last Filed: 09/02/24 14:57>
Orders/Labs/Results
Orders:
Orders
09/01/24 14:18
Crisis Consult Urgent
Reason for Consult: hallucinations
09/01/24 14:19
CT Head W/o Iv Contrast Urgent
Comment:
Reason For Exam: Hallucinations
09/01/24 14:20
Electrocardiogram (*1) Urgent
Reason for Study: Chest Pain
EKG- Treatment ONCE
09/01/24 14:45
Alcohol Urgent
Complete Blood Count/With Diff Urgent
Comprehensive Metabolic Panel Urgent
Fentanyl, Urine Urgent
TSH Reflex To Free T4 Urgent
Troponin I Urgent
Urine Drug Abuse Screen Urgent
Date Specimen was Collected: 09/01/24
Time Specimen was Collected: 14:40
Abnormal Lab Results
09/01/24
14:45
RBC 3.72 L 10^6/uL
(4.70-6.10)
Hgb 11.0 L g/dL
(13.0-18.0)
Hct 32.8 L %
(39.0-52.0)
RDW 14.9 H %
(11.5-14.5)
Ur Buprenorphine Positive H
(Negative)
Ur Amphetamines Screen Positive H
(Negative)
U Benzodiazepines Scrn Positive H
(Negative)
Urine Cocaine Screen Positive H
(Negative)
09/01/24 14:45
09/01/24 14:45
Vital Signs
Initial and Last Documented VS:
Initial Vital Signs
Temp Pulse Resp BP Pulse Ox
98.1 F 57 18 131/83 98
09/01/24 13:36 09/01/24 13:36 09/01/24 13:36 09/01/24 13:36 09/01/24 13:36
Last Documented Vital Signs
Temp Pulse Resp BP Pulse Ox
98.1 F 44 16 118/72 100
09/01/24 13:36 09/01/24 15:15 09/01/24 15:15 09/01/24 15:15 09/01/24 15:15
<Gilberto Saini PA-C - Last Filed: 09/01/24 19:26>
Orders/Labs/Results
Orders:
Orders
09/01/24 14:18
Crisis Consult Urgent
Reason for Consult: hallucinations
09/01/24 14:19
CT Head W/o Iv Contrast Urgent
Comment:
Reason For Exam: Hallucinations
09/01/24 14:20
Electrocardiogram (*1) Urgent
Reason for Study: Chest Pain
EKG- Treatment ONCE
09/01/24 14:45
Alcohol Urgent
Complete Blood Count/With Diff Urgent
Comprehensive Metabolic Panel Urgent
Fentanyl, Urine Urgent
TSH Reflex To Free T4 Urgent
Troponin I Urgent
Urine Drug Abuse Screen Urgent
Date Specimen was Collected: 09/01/24
Time Specimen was Collected: 14:40
Abnormal Lab Results
09/01/24
14:45
RBC 3.72 L 10^6/uL
(4.70-6.10)
Hgb 11.0 L g/dL
(13.0-18.0)
Hct 32.8 L %
(39.0-52.0)
RDW 14.9 H %
(11.5-14.5)
Ur Buprenorphine Positive H
(Negative)
Ur Amphetamines Screen Positive H
(Negative)
U Benzodiazepines Scrn Positive H
(Negative)
Urine Cocaine Screen Positive H
(Negative)
09/01/24 14:45
09/01/24 14:45
Vital Signs
Initial and Last Documented VS:
Initial Vital Signs
Temp Pulse Resp BP Pulse Ox
98.1 F 57 18 131/83 98
09/01/24 13:36 09/01/24 13:36 09/01/24 13:36 09/01/24 13:36 09/01/24 13:36
Last Documented Vital Signs
Temp Pulse Resp BP Pulse Ox
98.1 F 44 16 118/72 100
09/01/24 13:36 09/01/24 15:15 09/01/24 15:15 09/01/24 15:15 09/01/24 15:15
<Mary Rodriguez PA-C - Last Filed: 09/02/24 14:57>
MDM/Problems Addressed
Differential Diagnosis Includes:
34yoM here with auditory hallucinations and paranoia x 1 month. Hx of drug and alcohol abuse. Last drink 3 days ago, last drug use 1 week ago. No SI or command hallucinations. VSS. He is in no distress. No clinical signs of withdrawal appreciated.
Differential diagnosis includes but is not limited to: psychiatric disorder, drug induced psychosis
Initial ED plan: Will obtain medical workup including cardiac labs, TSH, EKG, and CT head. Crisis consult ordered.
<Mary Rodriguez PA-C - Last Filed: 09/02/24 14:57>
*EKG
Interpreted by ED Provider?: Yes
EKG Intrepretation Date: 09/01/24
Heart Rate: 44
Rate: bradycardiac
Rhythm: sinus
[place]: normal axis
Interval: normal interval
QRS Pattern: normal QRS
Ischemia: no ischemia
<Gilberto Saini PA-C - Last Filed: 09/01/24 19:26>
*Radiology
Radiology exam reviewed: radiology read reviewed
*Critical Care Note
Total Time (30-74mins, 75-104mins- exclusive of procedures): Not Applicable
<Gilberto Saini PA-C - Last Filed: 09/01/24 19:26>
Patient Management
Escalation/DeEscalation of care consider admission/obs:
1400 PM -received patient in signout pending remaining labs and CT imaging.
Patient's labs and CT imaging are unremarkable. UDS was notified for different substances. Patient reevaluated and reviewed his testing. Based off of presentation combined with workup I am most suspicious for substance abuse as cause of
hallucinations as opposed to a active alcohol withdrawal or other physiologic manifestation. Will order crisis consultation as well as [facility] to further evaluate. Patient's disposition pending these evaluations.
Patient arranged for outpatient care with [facility]. Feels comfortable going home. Aware of return precautions to the ED
ED Attending Note
<Mary Rodriguez PA-C - Last Filed: 09/02/24 14:57>
-
Portions of this chart may have been created with voice recognition software.� Occasional wrong word or��sound alike� substitutions may have occurred due to the inherent limitations of voice recognition software.
Discharge Plan
Departure
Patient Disposition: Home (Routine Discharge)
Date of Disposition: 09/01/24
Time of Disposition: 19:14
Patient with high blood pressure during this ER visit?: No
Discharge Problem:
Substance abuse, Hallucinations
Instructions: Substance Use Disorder ED
Prescriptions:
No Action
atorvastatin [Lipitor] 20 MG tablet
40 mg PO HS
aspirin 81 MG tablet,delayed release (DR/EC)
81 mg PO DAILY
albuterol sulfate [Ventolin HFA] 90 MCG/PUFF HFA aerosol inhaler
2 puff inhalation R Q6HPRN PRN (Reason: sob)
prasugrel [Effient] 10 MG tablet
10 mg PO DAILY
dextroamphetamine-amphetamine [Adderall] 10 mg Tablet
10 mg PO NOON
dextroamphetamine-amphetamine [Adderall] 20 mg Tablet
20 mg PO DAILY
diazepam 10 mg Tablet
10 mg PO BID
buprenorphine-naloxone 8-2 mg film
1 film buccal DAILY
Patient Comments:
patient picking supervisor on 02/19 #15
Referrals:
UNKNOWN - PT DOES,NOT KNOW [Family Provider] -
Interventions
Interventions:
*Risk Screen - Suicide Last Done: 09/01/24 13:41
*General Assessment Last Done: 09/01/24 13:40
*Neglect/Abuse Screening Last Done: 09/01/24 13:40
ED- Fall Risk Assessment Last Done: 09/01/24 15:16
*ED COVID-19 Vaccine History Last Done: 09/01/24 15:16
*Nursing Disposition Last Done: 09/01/24 20:10
ED-Psychological Assessment Last Done: 09/01/24 14:53
Discharge Date and Time
Discharge Date/Time: 09/01/24 20:11
Print Language: NEPALESE
[2024-09-01 15:15] VITALS: BP 118/72
[2024-09-01 15:16] VITALS: BMI 23.6
[2024-09-01 15:17] LABS: ALT (SGPT) 23 U/L (0-50); AST (SGOT) 29 U/L (17-59); Albumin 4.7 g/dl (3.5-5.0); Alkaline Phosphatase 58 U/L (38-126); Blood Urea Nitrogen 20 mg/dl (9-20); Calcium 9.3 mg/dl (8.4-10.2); Carbon Dioxide 28 mmol/L (22-30); Chloride 99 mmol/L (98-107); Glucose 94 mg/dl (70-99); Potassium 3.8 mmol/L (3.5-5.1); Sodium 139 mmol/L (135-145); Total Bilirubin 0.7 mg/dl (0.2-1.3); Total Protein 7.3 g/dl (6.3-8.2); eGFR > 60.00
[2024-09-01 15:18] LABS: % Basophils 0.4 % (0-2); % Eosinophils 0.4 % (0-6); % Immature Granulocytes 0.2 % (0-0.5); Absolute Lymphocytes 1.3 10^3/uL (1.2-3.4); Absolute Monocytes 0.4 10^3/uL (0.1-0.6); Absolute Neutrophils 3.1 10^3/uL (1.4-6.5); Hematocrit 32.8 % (39.0-52.0); Mean Corp Hgb Conc. 33.5 g/dL (33.0-37.0); Mean Corpuscular Hgb 29.6 pg (27.0-31.0); Mean Corpuscular Volume 88.2 fL (80.0-94.0); Mean Platelet Volume 9.4 fL (7.4-10.4); Nucleated Red Blood Cells % 0 % (-); Platelet Count 242 10^3/uL (130-400); Red Blood Cell Count 3.72 10^6/uL (4.70-6.10); Red Cell Dist. Width 14.9 % (11.5-14.5); White Blood Cell Count 4.9 10^3/uL (4.8-10.8)
[2024-09-01 15:19] LABS: Alcohol None Detected
[2024-09-01 15:29] LABS: Troponin I < 0.012 ng/ml
[2024-09-01 15:35] LABS: Amphetamines Positive (Negative); Barbiturates Negative (Negative); Benzodiazepines Positive (Negative); Buprenorphine Positive (Negative); Cocaine Positive (Negative)
[2024-09-01 15:36] LABS: Marijuana Negative (Negative); Methadone Negative (Negative); Methamphetamines Negative (Negative); Opiates Negative (Negative); Phencyclidine Negative (Negative); Tricyclic Antidepressants Negative (Negative)
[2024-09-01 15:48] LABS: TSH Reflex To Free T4 0.59 uIU/ml (0.47-4.68)
[2024-09-01 15:52] LABS: Fentanyl, Urine Negative (Negative)
== END 2024-09-01 20:11 | disposition home or self-care (01) ==
LOC: EMR 13:29
PROVIDERS: Physician Assistant; EMERGENCY PHYSICIAN Emergency Medicine
DX: F19.10 Other psychoactive substance abuse, uncomplicated (principal); R44.0 Auditory hallucinations; E78.5 Hyperlipidemia, unspecified; F17.200 Nicotine dependence, unspecified, uncomplicated; I25.10 Atherosclerotic heart disease of native coronary artery without angina pectoris; Z95.5 Presence of coronary angioplasty implant and graft
CPT/HCPCS: 99284; 70450; 80053; 80306; 80307; 82077; 84443; 84484; 85025; 93005

== ENCOUNTER 2024-10-29 10:18 | Emergency (ER) | payer OTHER, SELFPAY ==
[2024-10-29 10:29] VITALS: BP 148/98
--- NOTE | 2024-10-29 11:04 | ED.GENMED ---
History of Present Illness
General
Chief Complaint: Crisis Evaluation
Time Seen by Provider: 10/29/24 10:43
History of Present Illness
History of Present Illness:
34-year-old male presents to the emergency department for evaluation of auditory hallucinations of self-harm. He also admits to numerous problems with substance abuse. Does not specify substances but does not every drug possible'. States that he
hears noises such as his asthma is high-pitched squealing sounds, denies any voices or commands. Denies any active SI. States that 2 nights ago he got drunk and cut his left wrist several times however did not intend to kill himself at that time.
He comes in on his own volition, when asked whether he would like to sign in for inpatient mental health he states 'I do not know, I do not know what I need'. Denies any hallucinations at present. Contracts for safety in the emergency department.
Past History
Past History
ED Past Medical History: CAD and Psychiatric
ED Past Surgical History: None
Social History
Tobacco: Smoker
Alcohol: Occasional
Drug: Cocaine, Narcotics and Other
Personal: Single
Living: homeless
Employment: Not employed
Family History
Family History: Early CAD
Review of Systems
Review of Systems
Allergies reviewed?: Yes
All Other Systems: ROS reviewed and negative except as documented in HPI and ROS
Phy Exam
Physical Exam
Physical Exam:
GEN: Well appearing, NAD, WDWN
HEENT: Oral mucosa moist, no scleral icterus
Cardiac: Regular rate
Lung: No respiratory distress, no tachypnea
MSK: No gross deformity or injuries
Skin: Good color, no pallor or jaundice, no rashes
Neuro: AO x3, moves all extremities freely
Psych: Flat affect, cooperative, does not appear to be responding to internal stimuli, does not make contact
Course
Orders/Labs/Results
Orders:
Orders
10/29/24 10:22
1:1 Observation - Suicide/ Violent Behavior As Directed
10/29/24 11:03
Crisis Consult Urgent
Reason for Consult: SI/hallucinations
Aspirin Chewable [Low Strength Aspirin] 81 mg PO NOW STA
10/29/24 11:04
Electrocardiogram (*1) Urgent
Reason for Study: QTc Monitoring
EKG- Treatment ONCE
Vital Signs
Initial and Last Documented VS:
Initial Vital Signs
Temp Pulse Resp BP Pulse Ox
98.3 F 102 16 148/98 98
10/29/24 10:29 10/29/24 10:29 10/29/24 10:29 10/29/24 10:29 10/29/24 10:29
Last Documented Vital Signs
Temp Pulse Resp BP Pulse Ox
97.8 F 66 18 160/98 98
10/29/24 13:00 10/29/24 14:00 10/29/24 14:00 10/29/24 14:00 10/29/24 14:00
MDM/Problems Addressed
MDM/Problems Addressed:
She was initially evaluated by myself and crisis, initially, will send the patient some something for inpatient treatment. During consent process he expressed desire to leave. I had a lengthy discussion with him that he would benefit from
inpatient medical stay however at this time there are no involuntary admission criteria. Offered him nicotine patches as well as benzodiazepines for anxiety however he declines, states 'neurologist be sleeping on the street'. Offered [facility]
consultation for drug and alcohol cessation however he again declines. Ultimately he opted to be discharged from the hospital, encouraged to return to the emergency department should symptoms progress
*Critical Care Note
Total Time (30-74mins, 75-104mins- exclusive of procedures): Not Applicable
ED Attending Note
-
Portions of this chart may have been created with voice recognition software.� Occasional wrong word or��sound alike� substitutions may have occurred due to the inherent limitations of voice recognition software.
Discharge Plan
Departure
Patient Disposition: Home (Routine Discharge)
Date of Disposition: 10/29/24
Time of Disposition: 13:54
Patient with high blood pressure during this ER visit?: No
Discharge Problem:
Polysubstance abuse, Depression
Instructions: Depression, Adult (DC)
Prescriptions:
No Action
aspirin 81 MG tablet,delayed release (DR/EC)
81 mg PO DAILY
dextroamphetamine-amphetamine [Adderall] 10 mg Tablet
10 mg PO NOON
Patient Comments:
09/15/24: last filled 07/08/24 for 30 tablets over 30 days
diazepam 10 mg Tablet
10 mg PO BID
Patient Comments:
09/15/24: last filled 09/02/24 for 60 tablets over 30 days
buprenorphine-naloxone 8-2 mg film
0.5 film buccal BID
Patient Comments:
09/15/24: last filled 07/08/24 for 15 films over 30 days. Patient states he takes pieces of films at a time.
famotidine 20 mg Tablet
20 mg PO DAILY
dextroamphetamine-amphetamine 20 mg capsule,extended release 24hr
20 mg PO DAILY
Patient Comments:
09/15/24: last filled 07/11/24 for 30 tablets over 30 days. Patient states he does not want to take this med
rosuvastatin 40 mg Tablet
40 mg PO HS
Referrals:
NONE,* [Family Provider] -
Activity Restrictions/Additional Instructions:
Please do not hesitate to return if symptoms worsen
Interventions
Interventions:
*Risk Screen - Suicide Last Done: 10/29/24 10:19
*General Assessment Last Done: 10/29/24 11:13
*Neglect/Abuse Screening Last Done: 10/29/24 10:29
ED- Fall Risk Assessment Last Done: 10/29/24 11:13
*ED COVID-19 Vaccine History Last Done: 10/29/24 11:13
*Nursing Disposition Last Done: 10/29/24 14:00
ED-Psychological Assessment Last Done: 10/29/24 11:13
Discharge Date and Time
Discharge Date/Time: 10/29/24 14:05
Print Language: HUNGARIAN
[2024-10-29] MEDS: LOW STRENGTH ASPIRIN 81 MG PO (11:19)
[2024-10-29 13:00] VITALS: BP 162/102
[2024-10-29 14:00] VITALS: BP 160/98
--- NOTE | 2024-10-29 14:00 | EDRN ---
Reviewed discharge instructions with patient. Verbalized understanding. Ambulated with steady gait to the waiting room to wait for his father to come pick him up.
== END 2024-10-29 14:05 | disposition home or self-care (01) ==
LOC: EMR 10:18
PROVIDERS: EMERGENCY PHYSICIAN Emergency Medicine
DX: F32.A Depression, unspecified (principal); F19.10 Other psychoactive substance abuse, uncomplicated; R45.851 Suicidal ideations; F41.9 Anxiety disorder, unspecified; R44.0 Auditory hallucinations; Z59.00 Homelessness unspecified; I25.10 Atherosclerotic heart disease of native coronary artery without angina pectoris; F17.200 Nicotine dependence, unspecified, uncomplicated; Z91.52 Personal history of nonsuicidal self-harm
CPT/HCPCS: 99283; 93005

== ENCOUNTER 2024-10-29 14:56 | Emergency (ER) | payer OTHER, SELFPAY ==
[2024-10-29 15:05] VITALS: BP 159/100
--- NOTE | 2024-10-29 16:29 | ED.GENMED ---
History of Present Illness
<MARCELO Wilkerson Last Filed: 10/29/24 21:46>
General
Chief Complaint: Crisis Evaluation
Source: patient
Exam Limitations: none
Time Seen by Provider: 10/29/24 16:27
Nursing documentation reviewed up to this point in time: agreed with
History of Present Illness
History of Present Illness:
34-year-old male with a past medical history of future disorder, hyperlipidemia, coronary artery disease, alcohol abuse, depression, ADHD presents emergency department today with concerns of seeking resources for substance abuse. Patient was seen
in our emergency department this morning for depressive thoughts and auditory hallucinations of self-harm. A few months ago, he was in a rehab facility for alcohol abuse. He spoke to crisis to get resources, he declined resources for inpatient
treatment at this time. He was sent home. He states that when he went home, his dad was mad at him that he did not take his problems or seriously or utilize any resources. Patient presents today is requesting to talk to [facility] and crisis once
again. Patient reports is not able to get into his psychiatrist until mid October. Patient states that if he is discharged today, he feels that he would be able to keep himself safe. He is also hoping to speak to case management due to
homelessness. He denies any shortness of breath, chest pain, any headaches, any other medical complaints today.
Past History
<MARCELO Wilkerson Last Filed: 10/29/24 21:46>
Past History
ED Past Medical History: CAD and Psychiatric
ED Past Surgical History: None
Social History
Tobacco: Smoker
Alcohol: Occasional
Drug: Cocaine, Narcotics and Other
Personal: Single
Living: homeless
Employment: Not employed
Family History
Family History: Early CAD
Review of Systems
<MARCELO Wilkerson Last Filed: 10/29/24 21:46>
Review of Systems
All Other Systems: ROS reviewed and negative except as documented in HPI and ROS
Phy Exam
<Renea De Leon PA-C - Last Filed: 10/29/24 21:46>
Physical Exam
Physical Exam:
General: Patient is well appearing and in no acute distress; non-toxic
Skin: Warm and dry, scattered excoriations noted to left hand
Head: Normocephalic, atraumatic
Eyes: Sclera non-icteric. EOMs intact. PERRLA.
Cardiac: Regular rate
Pulm: Normal respiratory effort
Neuro: CN II-XII intact, no focal neurologic deficits.
Psychiatric: Depressed mood, with drawn affect, insight and judgement intact
Course
<Renea De Leon PA-C - Last Filed: 10/29/24 21:46>
Orders/Labs/Results
Orders:
Orders
10/29/24 16:38
Case Management Consult ONCE
Case Management Consult: Discharge Planning
Comment: homelessness
10/29/24 16:51
Urine Drug Abuse Screen Urgent
Vital Signs
Initial and Last Documented VS:
Initial Vital Signs
Temp Pulse Resp BP Pulse Ox
97.6 F 82 16 159/100 100
10/29/24 15:05 10/29/24 15:05 10/29/24 15:05 10/29/24 15:05 10/29/24 15:05
Last Documented Vital Signs
Temp Pulse Resp BP Pulse Ox
97.6 F 82 16 159/100 100
10/29/24 15:05 10/29/24 15:05 10/29/24 15:05 10/29/24 15:05 10/29/24 15:05
<Kodak Corral MD - Last Filed: 10/29/24 17:43>
Orders/Labs/Results
Orders:
Orders
10/29/24 16:38
Case Management Consult ONCE
Case Management Consult: Discharge Planning
Comment: homelessness
10/29/24 16:51
Urine Drug Abuse Screen Urgent
Vital Signs
Initial and Last Documented VS:
Initial Vital Signs
Temp Pulse Resp BP Pulse Ox
97.6 F 82 16 159/100 100
10/29/24 15:05 10/29/24 15:05 10/29/24 15:05 10/29/24 15:05 10/29/24 15:05
Last Documented Vital Signs
Temp Pulse Resp BP Pulse Ox
97.6 F 82 16 159/100 100
10/29/24 15:05 10/29/24 15:05 10/29/24 15:05 10/29/24 15:05 10/29/24 15:05
<Renea De Leon PA-C - Last Filed: 10/29/24 21:46>
MDM/Problems Addressed
Differential Diagnosis Includes:
See below
MDM/Problems Addressed:
NUMBER AND COMPLEXITY OF PROBLEMS ADDRESSED AT THE ENCOUNTER
� Chronic conditions affecting care: Polysubstance abuse, epilepsy, GERD,
� Acute Exacerbation and/or Progression of Chronic Illness:
� Differential Diagnosis includes: Withdrawal, depression, anxiety, suicidal ideation
AMOUNT AND/OR COMPLEXITY OF DATA TO BE REVIEWED AND ANALYZED
� I performed an independent evaluation of and my interpretation is:
No indication for lab work or imaging at this time
Other:
� Review of other/old records: Reviewed previous note from this morning from 11 AM, patient was deemed to be safe and was discharged
� Clinical information was obtained by an independent historian: none
� Prescriptions/Medications Considered but not given: n/a
� Further testing considered but not performed: n/a
RISK OF COMPLICATIONS AND/OR MORBIDITY OR MORTALITY OF PATIENT MANAGEMENT
� Social determinants of health affecting care: psychiatric illness, substance abuse
� Discussion with other providers: ER attending
� Escalation of care including admission/observation vs risk of discharge considered:
34-year-old male with past medical history of polysubstance abuse and epilepsy presents emergency department today with concerns of treatment for substance abuse. Will consult case management, [facility], crisis, and will reassess.
Reviewed previous records, patient started first experiencing hallucinations around August, he was seen in our emergency department and had workup done for the hallucinations he had a negative CAT scan of the head, and labs unremarkable, UDS
negative for different substances. No structural or medical etiology suspected to patient's hallucinations, his hallucinations are likely due to underlying psychiatric disorder versus polysubstance use.
Patient was seen by the [facility] team on-call, patient was offered to stay at the [facility] which treats patients with both psychiatric problems and substance use disorders. They also help patient's get housing if they are homeless after rehab
is complete. They also set patient's up with work. Patient is declining this at this time. I had a thorough discussion with patient and be care staff member about how we feel that this will benefit patient, patient states that he is not ready for
that yet. Patient was given resources and was given a direct line to the [facility] worker in case he would opt for rehab + psychiatric treatment. Patient does not want to go at this time. Regarding patient's homelessness, I did place a consult for
case management, patient states that he did not want to wait to see the outpatient case manager and states that he will try to stay with a friend and return to his dad's house. Patient did mention earlier that he wants to speak to crisis again, I did call the
reel worker right after I saw the patient. Patient states that he no longer wants to wait to see crisis and wants to discharge. Patient states that if he is discharged today, he will not harm himself and states that he feels that he is able to
keep himself safe. Patient is stable for discharge.
<Renea De Leon PA-C - Last Filed: 10/29/24 21:46>
*Pulse Oximetry
Patient hypoxic: no
*Critical Care Note
Total Time (30-74mins, 75-104mins- exclusive of procedures): Not Applicable
ED Attending Note
<Renea De Leon PA-C - Last Filed: 10/29/24 21:46>
-
Portions of this chart may have been created with voice recognition software.� Occasional wrong word or��sound alike� substitutions may have occurred due to the inherent limitations of voice recognition software.
<Kodak Corral MD - Last Filed: 10/29/24 17:43>
ED Attending Note
Patient seen and examined by attending physician: Yes
ED Attending Note:
I have seen and evaluated the patient with a [id number] encounter. I have spoken to the advance practicer provider and involved in the medical history, the physical exam, medical decision making.
Evaluation and management service: agree unless noted differently below.
Results interpretation: agree unless noted differently below.
Focused HPI: 34-year-old male with a past medical history as noted returns to the ER requesting inpatient treatment for substance abuse and depression. Patient was seen earlier in the emergency room and was offered inpatient treatment for dual
diagnosis but ultimately declined and asked to go home. After speaking with his family he decided to come back for help. He says that he has a history of polysubstance use but mainly uses kratom and alcohol currently. He says that his last drink
of alcohol was yesterday. He says that he has been increasingly depressed recently in part driven by his homelessness and lack of job. He says that when he is intoxicated he does occasionally have suicidal thoughts but here in the emergency room
today he denies being suicidal. He denies any homicidal ideation. He does admit that he has been having some hallucinations specifically auditory hallucinations recently.
Physical exam: Hypertensive but otherwise normal vitals. He resting comfortably not in distress. He has depressed mood, somewhat withdrawn affect.
Medical Decision Makin-year-old male presents to the ER seeking inpatient treatment for depression and substance use. He was seen earlier and initially declined treatment. Case was discussed with crisis as well as [facility] for assessment,
consideration for placement in dual diagnosis facility. Will continue to monitor. At this point patient denies suicidality and displays reasonable insight, he is here voluntarily but no clear grounds for involuntary commitment at this point in
time based on witnessed behavior and discussions with patient.
Discharge Plan
Departure
Patient Disposition: Home (Routine Discharge)
Date of Disposition: 10/29/24
Time of Disposition: 18:44
Patient with high blood pressure during this ER visit?: Yes
Condition: Good
Discharge Problem:
Depression, Homelessness, Alcohol use
Instructions: Depression, Adult (DC), Anxiety, Adult (DC), BLOOD PRESSURE, Drug and Alcohol Abuse Information
Prescriptions:
No Action
aspirin 81 MG tablet,delayed release (DR/EC)
81 mg PO DAILY
dextroamphetamine-amphetamine [Adderall] 10 mg Tablet
10 mg PO NOON
Patient Comments:
09/15/24: last filled 07/08/24 for 30 tablets over 30 days
diazepam 10 mg Tablet
10 mg PO BID
Patient Comments:
09/15/24: last filled 09/02/24 for 60 tablets over 30 days
buprenorphine-naloxone 8-2 mg film
0.5 film buccal BID
Patient Comments:
09/15/24: last filled 07/08/24 for 15 films over 30 days. Patient states he takes pieces of films at a time.
famotidine 20 mg Tablet
20 mg PO DAILY
dextroamphetamine-amphetamine 20 mg capsule,extended release 24hr
20 mg PO DAILY
Patient Comments:
09/15/24: last filled 07/11/24 for 30 tablets over 30 days. Patient states he does not want to take this med
rosuvastatin 40 mg Tablet
40 mg PO HS
Referrals:
Dannie Welch MD [Family Provider] -
Activity Restrictions/Additional Instructions:
You were seen may cares today and you were given resources and offered inpatient treatment as well as housing resources at [facility]. We highly recommend inpatient treatment for you. Please return emergency department if you change your
mind.
Please follow-up with your psychiatrist in October.
PLEASE RETURN EMERGENCY TO THE EMERGENCY DEPARTMENT SHOULD YOU EXPERIENCE CHEST PAIN, SUICIDAL OR HOMICIDAL IDEATION OR THOUGHTS, IF YOU HAVE A PLAN FOR SUICIDE, IF YOU HAVE PERSISTENT PANIC SYMPTOMS, ALCOHOL WITHDRAWAL SYMPTOMS SUCH PERSISTENT
ANXIETY, HALLUCINATIONS, SEIZURE-LIKE ACTIVITY, CONFUSION, ABDOMINAL PAIN, OR ANY OTHER SIGNS OR SYMPTOMS CONCERNING TO YOU.
Interventions
Interventions:
*Risk Screen - Suicide Last Done: 10/29/24 14:58
*General Assessment Last Done: 10/29/24 15:05
*Neglect/Abuse Screening Last Done: 10/29/24 15:05
ED- Fall Risk Assessment Last Done: 10/29/24 16:56
*ED COVID-19 Vaccine History Last Done: 10/29/24 15:05
*Nursing Disposition Last Done: 10/29/24 18:54
ED-Psychological Assessment Last Done: 10/29/24 16:57
Discharge Date and Time
Discharge Date/Time: 10/29/24 18:55
Print Language: SLOVENIAN
[2024-10-29 16:57] VITALS: BMI 22.8
== END 2024-10-29 18:55 | disposition home or self-care (01) ==
LOC: EMR 14:56
PROVIDERS: EMERGENCY PHYSICIAN Emergency Medicine; FAMILY PHYSICIAN Internal Medicine
DX: F32.A Depression, unspecified (principal); F10.10 Alcohol abuse, uncomplicated; Z59.00 Homelessness unspecified; R45.851 Suicidal ideations; R44.0 Auditory hallucinations; R03.0 Elevated blood-pressure reading, without diagnosis of hypertension; I25.10 Atherosclerotic heart disease of native coronary artery without angina pectoris; F90.9 Attention-deficit hyperactivity disorder, unspecified type; E78.5 Hyperlipidemia, unspecified; R56.9 Unspecified convulsions; K21.9 Gastro-esophageal reflux disease without esophagitis; F17.290 Nicotine dependence, other tobacco product, uncomplicated; F19.10 Other psychoactive substance abuse, uncomplicated; Z79.82 Long term (current) use of aspirin; Z95.5 Presence of coronary angioplasty implant and graft
CPT/HCPCS: 99282

== ENCOUNTER 2024-11-04 13:18 | Emergency (ER) | payer OTHER, SELFPAY ==
[2024-11-04 13:19] VITALS: BP 139/94
--- NOTE | 2024-11-04 13:28 | ED.GENMED ---
ED Provider Triage
<Isidro Gaxiola PA-C - Last Filed: 11/04/24 13:28>
-
Patient seen by provider in Triage?: Seen in Triage
34-year-old male presents for evaluation for alcohol abuse and depression. He states he has had some passive thoughts of harming himself but no specific plan. He states he has not had a drink in several days. He has no specific physical
complaints.
Vital signs are stable no tremor no diaphoresis noted at triage. Will check basic labs.
Seen by healthcare provider triage but warrants further assessment
History of Present Illness
<Isidro Gaxiola PA-C - Last Filed: 11/04/24 13:28>
General
Chief Complaint: Crisis Evaluation
Time Seen by Provider: 11/04/24 15:10
<Jackie Krishna DO - Last Filed: 11/04/24 20:09>
History of Present Illness
History of Present Illness:
34-year-old male with history of CAD status post stenting , kratom use and alcohol abuse presenting to the emergency department seeking rehab. Patient also notes depression, has had suicidal ideations in the past, however nothing currently. Was
seen in the hospital about a week ago for his depression, however at that time he reports he left the hospital and was not placed in any type of facility. Reports history of inpatient placement in the past. Last kratom use was today and last
alcohol usage was last week. Denies chest pain, difficulty breathing, abdominal pain, or additional acute medical complaints
Past History
<Isidro Gaxiola PA-C - Last Filed: 11/04/24 13:28>
Past History
ED Past Medical History: CAD and Psychiatric
ED Past Surgical History: None
Social History
Tobacco: Smoker
Alcohol: Occasional
Drug: Cocaine, Narcotics and Other
Personal: Single
Living: homeless
Employment: Not employed
Family History
Family History: Early CAD
Phy Exam
<Jackie Krishna DO - Last Filed: 11/04/24 20:09>
Physical Exam
Physical Exam:
General: Well-appearing, no clinical signs of dehydration, nontoxic and in no acute distress
HEENT: protecting airway
Neck: appears supple
CV: Normal heart rate
Resp: No accessory muscle use, no increased work of breathing
Abd: Soft and non-distended, no tenderness to palpation, normal bowel sounds
Extremities: No deformities, no swelling
Neuro: alert, no focal neurologic deficit
: deferred
Rectal: deferred
Psych: Normal affect
Skin: Intact
Course
<Isidro Gaxiola PA-C - Last Filed: 11/04/24 13:28>
Orders/Labs/Results
Orders:
Orders
11/04/24 13:34
Alcohol Urgent
Complete Blood Count/With Diff Urgent
Comprehensive Metabolic Panel Urgent
11/04/24 16:08
Drug Screen, Urine [Urine Drug Abuse Screen] Urgent
Date Specimen was Collected: 11/04/24
Time Specimen was Collected: 15:59
Abnormal Lab Results
11/04/24
13:34
WBC 4.2 L 10^3/uL
(4.8-10.8)
RBC 4.46 L 10^6/uL
(4.70-6.10)
RDW 15.1 H %
(11.5-14.5)
Absolute Lymphs (auto) 0.9 L 10^3/uL
(1.2-3.4)
Carbon Dioxide 33 H mmol/L
(22-30)
Glucose 127 H mg/dl
(70-99)
11/04/24 13:34
11/04/24 13:34
Vital Signs
Initial and Last Documented VS:
Initial Vital Signs
Temp Pulse Resp BP Pulse Ox
98 F 91 16 139/94 98
11/04/24 13:19 11/04/24 13:19 11/04/24 13:19 11/04/24 13:19 11/04/24 13:19
Last Documented Vital Signs
Temp Pulse Resp BP Pulse Ox
97.9 F 72 18 128/82 100
11/04/24 15:44 11/04/24 19:46 11/04/24 19:46 11/04/24 19:46 11/04/24 19:46
<Jackie Krishna, DO - Last Filed: 11/04/24 20:09>
Orders/Labs/Results
Orders:
Orders
11/04/24 13:34
Alcohol Urgent
Complete Blood Count/With Diff Urgent
Comprehensive Metabolic Panel Urgent
11/04/24 16:08
Drug Screen, Urine [Urine Drug Abuse Screen] Urgent
Date Specimen was Collected: 11/04/24
Time Specimen was Collected: 15:59
Abnormal Lab Results
11/04/24
13:34
WBC 4.2 L 10^3/uL
(4.8-10.8)
RBC 4.46 L 10^6/uL
(4.70-6.10)
RDW 15.1 H %
(11.5-14.5)
Absolute Lymphs (auto) 0.9 L 10^3/uL
(1.2-3.4)
Carbon Dioxide 33 H mmol/L
(22-30)
Glucose 127 H mg/dl
(70-99)
11/04/24 13:34
11/04/24 13:34
Vital Signs
Initial and Last Documented VS:
Initial Vital Signs
Temp Pulse Resp BP Pulse Ox
98 F 91 16 139/94 98
11/04/24 13:19 11/04/24 13:19 11/04/24 13:19 11/04/24 13:19 11/04/24 13:19
Last Documented Vital Signs
Temp Pulse Resp BP Pulse Ox
97.9 F 72 18 128/82 100
11/04/24 15:44 11/04/24 19:46 11/04/24 19:46 11/04/24 19:46 11/04/24 19:46
<Jackie Krishna DO - Last Filed: 11/04/24 20:09>
MDM/Problems Addressed
MDM/Problems Addressed:
34-year-old male with history of alcohol and kratom abuse presenting for rehabilitation services. Vital signs are normal.
On exam, no acute distress or discomfort. Currently denying any suicidal or homicidal ideation. Does not appear to be a threat to himself or others. Unremarkable exam without present concern for severe withdrawal. Screening laboratory analysis
performed, unremarkable. Plan for consultation with [facility] for possible inpatient therapy if recommended.
20:10 -patient excepted to facility. Stable for transfer. Transfer being arranged.
<Jackie Krishna DO - Last Filed: 11/04/24 20:09>
*Critical Care Note
Total Time (30-74mins, 75-104mins- exclusive of procedures): Not Applicable
ED Attending Note
<Isidro Gaxiola PA-C - Last Filed: 11/04/24 13:28>
-
Portions of this chart may have been created with voice recognition software.� Occasional wrong word or��sound alike� substitutions may have occurred due to the inherent limitations of voice recognition software.
Discharge Plan
Departure
Prescriptions:
No Action
aspirin 81 MG tablet,delayed release (DR/EC)
81 mg PO DAILY
dextroamphetamine-amphetamine [Adderall] 10 mg Tablet
10 mg PO NOON
Patient Comments:
09/15/24: last filled 07/08/24 for 30 tablets over 30 days
diazepam 10 mg Tablet
10 mg PO BID
Patient Comments:
09/15/24: last filled 09/02/24 for 60 tablets over 30 days
buprenorphine-naloxone 8-2 mg film
0.5 film buccal BID
Patient Comments:
09/15/24: last filled 07/08/24 for 15 films over 30 days. Patient states he takes pieces of films at a time.
famotidine 20 mg Tablet
20 mg PO DAILY
dextroamphetamine-amphetamine 20 mg capsule,extended release 24hr
20 mg PO DAILY
Patient Comments:
09/15/24: last filled 07/11/24 for 30 tablets over 30 days. Patient states he does not want to take this med
rosuvastatin 40 mg Tablet
40 mg PO HS
Referrals:
NONE,* [Family Provider] -
Interventions
Interventions:
*Risk Screen - Suicide Last Done: 11/04/24 13:19
*General Assessment Last Done: 11/04/24 15:46
*Neglect/Abuse Screening Last Done: 11/04/24 13:19
*ED COVID-19 Vaccine History Last Done: 11/04/24 15:46
ED-Psychological Assessment Last Done: 11/04/24 15:48
Discharge Date and Time
Print Language: MICRONESIAN
[2024-11-04 13:48] LABS: % Basophils 0.5 % (0-2); % Eosinophils 0.5 % (0-6); % Immature Granulocytes 0.5 % (0-0.5); % Lymphocytes 21.7 % (20.5-51.1); % Monocytes 5.2 % (1.7-9.3); % Neutrophils 71.6 % (42.2-75.2); Absolute Lymphocytes 0.9 10^3/uL (1.2-3.4); Absolute Monocytes 0.2 10^3/uL (0.1-0.6); Hematocrit 40.8 % (39.0-52.0); Hemoglobin 13.7 g/dL (13.0-18.0); Mean Corp Hgb Conc. 33.6 g/dL (33.0-37.0); Mean Corpuscular Hgb 30.7 pg (27.0-31.0); Mean Corpuscular Volume 91.5 fL (80.0-94.0); Mean Platelet Volume 9.6 fL (7.4-10.4); Nucleated Red Blood Cells % 0 % (-); Platelet Count 234 10^3/uL (130-400); Red Blood Cell Count 4.46 10^6/uL (4.70-6.10); Red Cell Dist. Width 15.1 % (11.5-14.5); White Blood Cell Count 4.2 10^3/uL (4.8-10.8)
[2024-11-04 13:56] LABS: ALT (SGPT) 22 U/L (0-50); AST (SGOT) 24 U/L (17-59); Albumin 4.8 g/dl (3.5-5.0); Alkaline Phosphatase 80 U/L (38-126); Blood Urea Nitrogen 15 mg/dl (9-20); Carbon Dioxide 33 mmol/L (22-30); Chloride 99 mmol/L (98-107); Glucose 127 mg/dl (70-99); Sodium 142 mmol/L (135-145); Total Bilirubin 0.5 mg/dl (0.2-1.3); Total Protein 7.6 g/dl (6.3-8.2); eGFR > 60.00
[2024-11-04 14:01] LABS: Alcohol None Detected
[2024-11-04 15:44] VITALS: BP 115/84
[2024-11-04 15:46] VITALS: BMI 24.3
[2024-11-04 16:29] LABS: Amphetamines Negative (Negative); Barbiturates Negative (Negative); Benzodiazepines Negative (Negative); Buprenorphine Negative (Negative); Cocaine Negative (Negative); Marijuana Negative (Negative); Methadone Negative (Negative); Methamphetamines Negative (Negative); Opiates Negative (Negative); Phencyclidine Negative (Negative); Tricyclic Antidepressants Negative (Negative)
[2024-11-04 19:46] VITALS: BP 128/82
== END 2024-11-04 20:26 ==
LOC: EMR 13:18
PROVIDERS: Physician Assistant; EMERGENCY PHYSICIAN Student in an Organized Health Care Education/Training Program
DX: F10.10 Alcohol abuse, uncomplicated (principal); F19.99 Other psychoactive substance use, unspecified with unspecified psychoactive substance-induced disorder; I25.10 Atherosclerotic heart disease of native coronary artery without angina pectoris; Z95.5 Presence of coronary angioplasty implant and graft; F17.200 Nicotine dependence, unspecified, uncomplicated
CPT/HCPCS: 99285; 80053; 80306; 82077; 85025

== ENCOUNTER 2025-01-27 01:43 | Emergency (ER) | payer OTHER, SELFPAY ==
[2025-01-27 01:47] VITALS: BP 146/103
[2025-01-27 03:35] LABS: % Basophils 0.3 % (0-2); % Eosinophils 1.8 % (0-6); % Immature Granulocytes 0.3 % (0-0.5); % Lymphocytes 14.3 % (20.5-51.1); % Monocytes 8.1 % (1.7-9.3); % Neutrophils 75.2 % (42.2-75.2); Absolute Eosinophils 0.1 10^3/uL (0-0.7); Absolute Lymphocytes 1.1 10^3/uL (1.2-3.4); Absolute Monocytes 0.6 10^3/uL (0.1-0.6); Absolute Neutrophils 5.7 10^3/uL (1.4-6.5); Hematocrit 33.9 % (39.0-52.0); Hemoglobin 11.3 g/dL (13.0-18.0); Mean Corp Hgb Conc. 33.3 g/dL (33.0-37.0); Mean Corpuscular Volume 86.9 fL (80.0-94.0); Mean Platelet Volume 9.5 fL (7.4-10.4); Nucleated Red Blood Cells % 0 % (-); Platelet Count 157 10^3/uL (130-400); Red Cell Dist. Width 14.9 % (11.5-14.5); White Blood Cell Count 7.6 10^3/uL (4.8-10.8)
[2025-01-27 03:41] VITALS: BP 123/91
[2025-01-27 03:42] VITALS: BMI 25.5
[2025-01-27 03:55] LABS: ALT (SGPT) 14 U/L (0-50); AST (SGOT) 25 U/L (17-59); Albumin 3.8 g/dl (3.5-5.0); Alkaline Phosphatase 78 U/L (38-126); Blood Urea Nitrogen 13 mg/dl (9-20); Calcium 8.9 mg/dl (8.4-10.2); Carbon Dioxide 26 mmol/L (22-30); Chloride 105 mmol/L (98-107); Estimated Creatinine Clearance > 125 ml/min; Glucose 90 mg/dl (70-99); Lipase 959 U/L (23-300); Potassium 3.1 mmol/L (3.5-5.1); Sodium 142 mmol/L (135-145); Total Bilirubin 0.7 mg/dl (0.2-1.3); Total Protein 6.5 g/dl (6.3-8.2); eGFR > 60.00
[2025-01-27 03:57] LABS: Alcohol None Detected
--- NOTE | 2025-01-27 03:59 | ED.GENMED ---
History of Present Illness
<Allen Espinosa DO - Last Filed: 01/27/25 07:03>
General
Chief Complaint: Abdominal Symptoms
Source: patient
Time Seen by Provider: 01/27/25 03:36
History of Present Illness
History of Present Illness:
34-year-old male presents to the emergency department for upper abdominal pain. Patient has a history of pancreatitis and states that this feels similar to previous episodes. Patient has past medical history significant for coronary artery
disease, hyperlipidemia, alcohol abuse, depression, ADHD. Patient was seen at [facility] earlier in the day and had a workup there. Thus far we have not been able to get lab work or imaging. Patient denies fever or chills.
States his pain has been persistent. He does have chronic pancreatitis.
Past History
<DO Jose Henry Last Filed: 01/27/25 07:03>
Past History
ED Past Medical History: CAD and Psychiatric
ED Past Surgical History: None
Social History
Tobacco: Smoker
Alcohol: Occasional
Drug: Cocaine, Narcotics and Other
Personal: Single
Living: homeless
Employment: Not employed
Family History
Family History: Early CAD
Review of Systems
<DO Jose Henry Last Filed: 01/27/25 07:03>
Review of Systems
Allergies reviewed?: Yes
All Other Systems: ROS reviewed and negative except as documented in HPI and ROS
Constitutional: Reports no symptoms
EENT: Reports no symptoms
Respiratory: Reports no symptoms
Cardiac: Reports no symptoms
ABD/GI: Reports abdominal pain
: Reports no symptoms
Musculoskeletal: Reports no symptoms
Skin: Reports no symptoms
Neurological: Reports no symptoms
Endocrine: Reports no symptoms
Hematologic/Lymphatic: Reports no symptoms
Psychiatric: Reports no symptoms
Phy Exam
<Allen Espinosa DO - Last Filed: 01/27/25 07:03>
General Physical Exam
General Presentation: moderate distress
General age: appears older than age
General Skin: warm and dry
General Habitus: normal
General Mental: alert
Gastrointestinal Exam
Gastrointestinal Exam: normal bowel sounds, non distended and guarding
Palpation: left upper quadrant: No tenderness and right upper quadrant: No tenderness
Course
<Allen Espinosa DO - Last Filed: 01/27/25 07:03>
Orders/Labs/Results
Orders:
Orders
01/27/25 03:28
Alcohol Urgent
Complete Blood Count/With Diff Urgent
Comprehensive Metabolic Panel Urgent
Lipase Urgent
01/27/25 03:57
CT Abd/pelvis W Iv Cont Urgent
Comment:
Reason For Exam: Upper abdominal pain elevated lipase
01/27/25 03:58
Lactated Ringers [Lr] 1,000 ml IV BOLUS
01/27/25 07:25
Morphine Sulfate 2 mg .ROUTE .STK-MED ONE
01/27/25 07:31
Morphine Sulfate 2 mg IV NOW STA
01/27/25 09:16
Morphine Sulfate 2 mg IV NOW STA
Abnormal Lab Results
01/27/25
03:28
RBC 3.90 L 10^6/uL
(4.70-6.10)
Hgb 11.3 L g/dL
(13.0-18.0)
Hct 33.9 L %
(39.0-52.0)
RDW 14.9 H %
(11.5-14.5)
Absolute Lymphs (auto) 1.1 L 10^3/uL
(1.2-3.4)
Lymphocytes % 14.3 L %
(20.5-51.1)
Potassium 3.1 L mmol/L
(3.5-5.1)
Creatinine 0.6 L mg/dL
(0.7-1.3)
Lipase 959 H U/L
(23-300)
01/27/25 03:28
01/27/25 03:28
Vital Signs
Initial and Last Documented VS:
Initial Vital Signs
Temp Pulse Resp BP Pulse Ox
36.6 C 74 16 146/103 100
01/27/25 01:47 01/27/25 01:47 01/27/25 01:47 01/27/25 01:47 01/27/25 01:47
Last Documented Vital Signs
Temp Pulse Resp BP Pulse Ox
36.6 C 74 16 123/91 99
01/27/25 01:47 01/27/25 01:47 01/27/25 01:47 01/27/25 03:41 01/27/25 03:45
<Kodka Corral MD - Last Filed: 01/27/25 09:22>
Orders/Labs/Results
Orders:
Orders
01/27/25 03:28
Alcohol Urgent
Complete Blood Count/With Diff Urgent
Comprehensive Metabolic Panel Urgent
Lipase Urgent
01/27/25 03:57
CT Abd/pelvis W Iv Cont Urgent
Comment:
Reason For Exam: Upper abdominal pain elevated lipase
01/27/25 03:58
Lactated Ringers [Lr] 1,000 ml IV BOLUS
01/27/25 07:25
Morphine Sulfate 2 mg .ROUTE .STK-MED ONE
01/27/25 07:31
Morphine Sulfate 2 mg IV NOW STA
01/27/25 09:16
Morphine Sulfate 2 mg IV NOW STA
Abnormal Lab Results
01/27/25
03:28
RBC 3.90 L 10^6/uL
(4.70-6.10)
Hgb 11.3 L g/dL
(13.0-18.0)
Hct 33.9 L %
(39.0-52.0)
RDW 14.9 H %
(11.5-14.5)
Absolute Lymphs (auto) 1.1 L 10^3/uL
(1.2-3.4)
Lymphocytes % 14.3 L %
(20.5-51.1)
Potassium 3.1 L mmol/L
(3.5-5.1)
Creatinine 0.6 L mg/dL
(0.7-1.3)
Lipase 959 H U/L
(23-300)
01/27/25 03:28
01/27/25 03:28
Vital Signs
Initial and Last Documented VS:
Initial Vital Signs
Temp Pulse Resp BP Pulse Ox
36.6 C 74 16 146/103 100
01/27/25 01:47 01/27/25 01:47 01/27/25 01:47 01/27/25 01:47 01/27/25 01:47
Last Documented Vital Signs
Temp Pulse Resp BP Pulse Ox
36.6 C 74 16 123/91 99
01/27/25 01:47 01/27/25 01:47 01/27/25 01:47 01/27/25 03:41 01/27/25 03:45
<Allen Espinosa DO - Last Filed: 01/27/25 07:03>
*Pulse Oximetry
Patient hypoxic: no
*Critical Care Note
Total Time (30-74mins, 75-104mins- exclusive of procedures): Not Applicable
ED Attending Note
<DO Jose Henry Last Filed: 01/27/25 07:03>
-
Portions of this chart may have been created with voice recognition software.� Occasional wrong word or��sound alike� substitutions may have occurred due to the inherent limitations of voice recognition software.
<Kodak Corral MD - Last Filed: 01/27/25 09:22>
ED Attending Note
Patient seen and examined by attending physician: Yes
ED Attending Note:
I have seen and evaluated the patient with a [id number] encounter. I have spoken to the advance practicer provider and involved in the medical history, the physical exam, medical decision making.
Evaluation and management service: agree unless noted differently below.
Results interpretation: agree unless noted differently below.
Focused HPI: 34-year-old male with history as noted presents to the ER complaining of abdominal discomfort. He was discharged he says yesterday from [place] he says that he had 'a little' alcohol and tried to eat and then started to have some
abdominal discomfort and vomiting. Came to the ER for assessment.
Physical exam: Patient is sleeping in bed. Easily arousable. Vital signs are all normal. His abdomen is soft minimally tender in the epigastrium.
Medical Decision Makin-year-old male presents for evaluation of acute on chronic abdominal discomfort in the setting of a recent bout of pancreatitis. Vitals and exam as above. He had labs done including CBC which shows marginal anemia. CMP
showed hypokalemia�will replete p.o. Otherwise unremarkable. His LFTs were normal. His lipase was marginally elevated. CT abdomen pelvis shows improvement in previously visualized peripancreatic fluid; gallbladder distended but no wall
thickening or edema to suggest cholecystitis and he has no fever, leukocytosis and minimally tender. Low clinical suspicion that this is an acute cholecystitis. Suspect acute on chronic pancreatitis. Symptoms well-controlled here in the emergency
room�I offered admission for treatment versus discharge she says that he wants a dose of pain medication prior to leaving and feels he can be discharged. I told him that he should stick with a clear liquid diet, advance to bland diet after 24 to 48
hours. Advised him to drink plenty of fluids. Advised him to abstain from alcohol use. Spoke about return precautions all questions answered.
Discharge Plan
Departure
Patient Disposition: Home (Routine Discharge)
Date of Disposition: 01/27/25
Time of Disposition: 09:17
Patient with high blood pressure during this ER visit?: Yes
Discharge Problem:
Acute on chronic pancreatitis
Instructions: Clear Liquid Diet, Abdominal Pain
Prescriptions:
No Action
aspirin 81 MG tablet,delayed release (DR/EC)
81 mg PO DAILY
dextroamphetamine-amphetamine [Adderall] 10 mg Tablet
10 mg PO NOON
Patient Comments:
09/15/24: last filled 07/08/24 for 30 tablets over 30 days
diazepam 10 mg Tablet
10 mg PO BID
Patient Comments:
09/15/24: last filled 09/02/24 for 60 tablets over 30 days
buprenorphine-naloxone 8-2 mg film
0.5 film buccal BID
Patient Comments:
09/15/24: last filled 07/08/24 for 15 films over 30 days. Patient states he takes pieces of films at a time.
famotidine 20 mg Tablet
20 mg PO DAILY
dextroamphetamine-amphetamine 20 mg capsule,extended release 24hr
20 mg PO DAILY
Patient Comments:
09/15/24: last filled 07/11/24 for 30 tablets over 30 days. Patient states he does not want to take this med
rosuvastatin 40 mg Tablet
40 mg PO HS
Referrals:
UNKNOWN - PT DOES,NOT KNOW [Family Provider] -
Interventions
Interventions:
*Risk Screen - Suicide Last Done: 01/27/25 01:47
*General Assessment Last Done: 01/27/25 03:42
*Neglect/Abuse Screening Last Done: 01/27/25 01:47
*ED- Fall Risk Assessment Last Done: 01/27/25 01:47
*ED COVID-19 Vaccine History Last Done: 01/27/25 01:47
LS-Duphlc-Oftglvmbfa Assessment Last Done: 01/27/25 03:42
Discharge Date and Time
Print Language: BULGARIAN
[2025-01-27] MEDS: LR 1000 IV (04:09)
[2025-01-27] MEDS: MORPHINE SULFATE 2 MG IV ×2 (07:30→09:25)
[2025-01-27] MEDS: KCL 40 MEQ PO (09:31)
== END 2025-01-27 10:39 | disposition home or self-care (01) ==
LOC: EMR 01:43
PROVIDERS: EMERGENCY PHYSICIAN Student in an Organized Health Care Education/Training Program
DX: K85.90 Acute pancreatitis without necrosis or infection, unspecified (principal); K86.1 Other chronic pancreatitis; E78.5 Hyperlipidemia, unspecified; I25.10 Atherosclerotic heart disease of native coronary artery without angina pectoris; F17.200 Nicotine dependence, unspecified, uncomplicated; F90.9 Attention-deficit hyperactivity disorder, unspecified type; F32.A Depression, unspecified
CPT/HCPCS: 99285; 96374; 96361 ×2; 96376; 74177; 80053; 82077; 83690; 85025; Q9967